=== PATIENT | male | born 1945 | race Caucasian/White ===

== ENCOUNTER → 2020-07-02 10:37 | Outpatient (BNVA) | payer MEDICARE, SELFPAY | PROVIDERS: Family Provider Nurse Practitioner Family; PCP Nurse Practitioner Family; Visit Provider Registered Nurse | DX: Z20.828 Contact with and (suspected) exposure to other viral communicable diseases (principal) | CPT/HCPCS: 87635 ==

== ENCOUNTER 2020-11-03 18:41 | Inpatient (IN) | payer MEDICARE, SELFPAY ==
[2020-11-03] VITALS (9 sets, daily range): BP systolic 102–172; BP diastolic 67–123; PULSE 111–142; RESP 17–20; O2SAT 95–98; BMI 29.9
--- NOTE | 2020-11-03 19:01 | ED_ITS ---
HPI - SOB/Dyspnea General: Chief Complaint: Shortness of Breath/Dyspnea Stated Complaint: DIFF BREATHING Time Seen by Provider: 11/03/20 18:47 History of Present Illness: HPI Narrative: 75-year-old male brought in by EMS secondary to shortness of breath. EMS states that his O2 sat was 81% on room air. They state he was diaphoretic and pale. Patient states he has been having difficulty breathing past 3 to 4 days. He states he got worse today. He does not wear oxygen at home. He is currently on O2 per nasal cannula. He denies any chest pain. No arm, neck or jaw pain. He denies fever or chills. No nausea or vomiting. No pain or burning with urination. No diarrhea or constipation. No abdominal or flank pain. He states it is hard to take a deep breath but denies any pain on inspiration. He states he has not had a cough. He states it is just hard to breathe. Patient states that he does have inhaler at home but states he has not used it for the past 1-1/2 weeks. He denies a history of any previous heart attack/CA. He states he did have a CVA in 2012. He denies any lung disease. Records do indicate he has had previous bouts of bronchitis. On route patient did receive steroids as well as breathing treatments. He states he feels a lot better now than he did. MD elicited complaint: shortness of breath Onset (ago): day(s) (3-4 days, worse today) Associated symptoms: Reports diaphoresis (Patient was noted to be diaphoretic upon the EMS arrival); Deny abdominal pain, chest congestion, chest pain, dizziness, extremity pain, fever(s), hemoptysis, lightheadedness, nausea, palpitations, syncope or vomiting Review of Systems General: Reports: 10 or more systems reviewed and unremarkable except in HPI and below Narrative: 75-year-old male comes in with shortness of breath the past 3-4 days. Worse today. He denies any history of lung disease. He denies any previous heart disease or CA. He has had a previous stroke. Const: Reports: diaphoresis (Patient was noted to be diaphoretic upon the EMS arrival); Denies: fever(s), chills, body aches, change in appetite, change in weight, fatigue, malaise or night sweats ENMT: Denies: throat pain, ear or mastoid pain or nasal congestion Card: Denies: chest pain, palpitations, irregular heart rhythm, edema, swelling of feet/ankles, lightheadedness, syncope or leg pain with exertion Resp: Reports: dyspnea (Current chief complaint of shortness of breath); Denies: productive cough, non-productive cough, wheezing, stridor, pain on inspiration, change in phlegm color, hemoptysis or chest congestion GI: Denies: abdominal pain, nausea, vomiting, heartburn, diarrhea or constipation : Denies: flank pain, difficulty urinating or dysuria Musc: Denies: neck pain, back pain, extremity pain or extremity swelling Neuro: Denies: headache(s), numbness in extremities, weakness in extremities, lack of coordination, dizziness or confusion Psych: Denies: anxiety or depression PFS ED PFSH: Medical History Anemia Cerebellar stroke Clavicle fracture Dyslipidemia HTN (hypertension) Surgical History H/O tooth extraction Family History (Updated 11/04/20 @ 00:46 by Adore Munoz MD) Other Cancer Social History (Updated 11/04/20 @ 00:46 by Adore Munoz MD) Smoking and tobacco status: never smoked Second hand smoke exposure: No Alcohol intake: never Substance/Drug Use: never Housing: House Physical Exam Narrative: EXAM NARRATIVE: 75-year-old male comes in with shortness of breath. He appears to be in no acute distress. The patient is wearing O2 per nasal cannula. Const: COMMON NORMALS: no acute distress, average body habitus, patient oriented x3, no limitations, healthy appearing, alert and well nourished GE NERAL APPEARANCE: cooperative, comfortable and well developed; not in distress, not anxious and not lethargic NUTRITIONAL APPEARANCE: not cachectic ORIENTATION/CONSCIOUSNESS: Yes oriented to person, Yes oriented to place and Yes oriented to time; not lethargic HENMT: MOUTH: Normal oral and palatal mucosa present THROAT: posterior oropharynx normal Eye: COMMON NORMALS: Equal, round and reactive pupils present, EOMs intact bilaterally, conjunctivae normal and no scleral icterus GENERAL EYE: appearance normal, both eyes and all related structures and normal light reflex CONJUNCTIVA: Yes conjunctivae normal PUPIL: Yes Equal, round and reactive pupils present DIRECT OPHTHALMOSCOPY: Yes normal light reflex Neck/C-Spine: COMMON NORMALS: full ROM, no lymphadenopathy, supple, no meningeal signs, no JVD and Thyroid normal GENERAL: Yes normal visual inspection, Yes trachea midline, No anterior neck swelling, No lymphadenopathy and No tender THYROID: Thyroid normal Chest: COMMONS NORMALS: normal inspection of the chest Resp: COMMON NORMALS: normal respiratory effort, No retractions and No use of accessory muscles EFFORT & INSPECTION: Yes able to speak in complete sentences, Yes symmetric chest movement, Yes abnormal respiratory pattern, No tachypneic, No respiratory distress, No decreased respiratory effort, No labored, No grunting, No stridor, No Actively coughing, No retractions, No uses accessory muscles and No audible wheezes AUSCULTATION: no crackles, no rales, no rhonchi, no wheezes and diminished lung sounds (Mildly decreased breath sounds at the bases) bilateral Cardio: COMMON NORMALS: no JVD, regular rhythm, No gallops present (Cardio), No clicks present (Cardio), No murmurs present (Cardio), No rub (Cardio) and Peripheral pulses 2+ throughout RATE: tachycardic RHYTHM: regular rhythm PERIPHERAL PULSES: Peripheral pulses 2+ throughout GI: COMMON NORMALS: Normal to inspection, nondistended, normoactive bowel sounds present, Soft to palpation, non-tender, No hepatosplenomegaly present, no masses and no bruits INSPECTION: Yes normal to inspection PALPATION: Yes Soft to palpation and Yes No hepatosplenomegaly present : COMMON NORMALS: Yes no CVA tenderness BLADDER/KIDNEY EXAM: Yes no CVA tenderness Back/Pelvis: COMMON NORMALS: no CVA tenderness Extremity: COMMON NORMALS: normal to inspection, full ROM, capillary refill normal, no joint enlargement, no clubbing, cyanosis or edema, no calf tenderness and no pedal edema Neuro: COMMON NORMALS: patient oriented x3, CN's II-XII intact bilaterally, moves all extremities, no focal motor deficits, deep tendon reflexes 2+ bilaterally and gait normal SENSORIUM/ORIENTATION: Yes alert, Yes oriented to person, Yes oriented to place, Yes oriented to time and No lethargic MENIN GEAL SIGNS: Yes no meningeal signs Psych: COMMON NORMALS: mental status grossly normal, Normal thought process present, cooperative, normal affect and speech normal ATTITUDE: Yes calm and Yes engaged SPEECH: Yes normal speech THOUGHT PROCESS: Normal thought process present Skin: COMMON NORMALS: no rashes or lesions noted, no wounds, turgor normal and no jaundice GENERAL SKIN EXAM: no rashes or lesions noted and turgor normal Course Reevaluation(s): Reevaluation #1: Patient noted to be extremely tachycardic. Heart rate greater than 200. Patient appears somewhat diaphoretic. Upon entering the room the patient stated that he did feel his heart beat faster earlier today as well. He also states his heart has beating fast the past 3- days on occasion. He states he would feel short of breath at those times. He denies any chest pain. No arm, neck or jaw pain at this time. Patient was given 25 mg of Cardizem which improved his heart rate. Vital Signs: Vital signs: Vital Signs Pulse Rate 71 11/04/20 06:30 Respiratory Rate 17 11/04/20 06:30 Blood Pressure 132/73 11/04/20 06:30 Pulse Oximetry 97 11/04/20 06:30 MDM - SOB/Dyspnea Lab Data: Labs: Lab Results 11/03/20 11/03/20 11/03/20 Range/Units 04:20 19:02 19:02 WBC 22.7 H (4.0-10.0) 10^3/ uL RBC 4.19 (4.1-5.3) 10^6/u L Hgb 12.5 (11.7-16.6) g/dL Hct 39.0 L (42.0-52.0) % MCV 93.1 (80-94) fL MCH 29.8 (28.0-34.0) pg MCHC 32.1 (30.0-36.0) g/dL RDW 13.5 (12.1-15.1) % Plt Count 291 (130-400) 10^3/c mm MPV 10.4 (7.4-10.4) fL Neut % (Auto) 52.3 % Lymph % (Auto) 33.0 % Clinton % (Auto) 9.9 % Eos % (Auto) 2.9 % Baso % (Auto) 0.4 % Neut # (Auto) 11.86 H (1.8-7.7) 10^3/u L Lymph # (Auto) 7.5 H (0.8-4.8) 10^3/u L Clinton # (Auto) 2.3 H (0.2-0.9) 10^3/u L Eos # (Auto) 0.7 (0.0-0.8) 10^3/u L Baso # (Auto) 0.1 (0.0-0.1) 10^3/u L Nucleated RBC % (a uto) 0 % Nucleated RBCs # 0.0 /100WBC D-Dimer 1.65 H (0-0.59) ug/mIFE U Specimen Type Arterial Sample Site Radial, right ABG pH 7.47 H (7.35-7.45) ABG pCO2 28.5 L (35-45) mmHg ABG pO2 86.5 (80.0-100.0) mmH g ABG HCO3 20.9 L (22-26) mmol/L ABG Base Excess -1.7 (-2.0-2.0) mmol/ L Indra Test Pos Hematocrit 36.6 L (42-52) % O2 Delivery Device Nc O2 Liters/Min 2.0 % Technical Sales Engineer ID [email or web address] Sodium (136-145) mmol/L Potassium (3.5-5.1) mmol/L Chloride (98-107) mmol/L Carbon Dioxide (22-29) mmol/L Anion Gap (5-19) BUN (8-23) mg/dL Creatinine (0.7-1.2) mg/dL GFR Calculation Glucose (65-115) mg/dL Estimat Average Gl ucose Hemoglobin A1c (4.0-6.0) % Calculated Osmolal ity (285-295) mOsm/k g Calcium (8.5-10.5) mg/dL Magnesium (1.7-2.3) mg/dL Total Bilirubin (0.15-1.2) mg/dL AST (0-40) U/L ALT (0-41) U/L Alkaline Phosphata se (40-130) IU/L Troponin T Baselin e (0-15) ng/L Troponin T 120 Min erasmo (0-15) ng/L Delta Troponin T (0-10) ABS# NT-Pro-B Natriuret Pep (0-125) pg/mL Total Protein (6.6-8.7) g/dL Albumin (3.5-5.2) g/dL Globulin (1.3-4.6) g/dL Serum Ketones (Negative) Influenza Type A A g (Negative) Influenza Type B A g (Negative) 11/03/20 11/03/20 11/03/20 Range/Units 19:02 19:02 19:02 WBC (4.0-10.0) 10^3/ uL RBC (4.1-5.3) 10^6/u L Hgb (11.7-16.6) g/dL Hct (42.0-52.0) % MCV (80-94) fL MCH (28.0-34.0) pg MCHC (30.0-36.0) g/dL RDW (12.1-15.1) % Plt Count (130-400) 10^3/c mm MPV (7.4-10.4) fL Neut % (Auto) % Lymph % (Auto) % Clinton % (Auto) % Eos % (Auto) % Baso % (Auto) % Neut # (Auto) (1.8-7.7) 10^3/u L Lymph # (Auto) (0.8-4.8) 10^3/u L Clinton # (Auto) (0.2-0.9) 10^3/u L Eos # (Auto) (0.0-0.8) 10^3/u L Baso # (Auto) (0.0-0.1) 10^3/u L Nucleated RBC % (a uto) % Nucleated RBCs # /100WBC D-Dimer (0-0.59) ug/mIFE U Specimen Type Sample Site ABG pH (7.35-7.45) ABG pCO2 (35-45) mmHg ABG pO2 (80.0-100.0) mmH g ABG HCO3 (22-26) mmol/L ABG Base Excess (-2.0-2.0) mmol/ L Indra Test Hematocrit (42-52) % O2 Delivery Device O2 Liters/Min % Technical Sales Engineer ID Sodium 131 L (136-145) mmol/L Potassium 3.2 L (3.5-5.1) mmol/L Chloride 92 L (98-107) mmol/L Carbon Dioxide 15 L (22-29) mmol/L Anion Gap 27.2 H (5-19) BUN 11 (8-23) mg/dL Creatinine 1.1 (0.7-1.2) mg/dL GFR Calculation Not Reportable Glucose 269 H (65-115) mg/dL Estimat Average Gl ucose 131 Hemoglobin A1c 6.2 H (4.0-6.0) % Calculated Osmolal ity 281 L (285-295) mOsm/k g Calcium 8.3 L (8.5-10.5) mg/dL Magnesium 2.2 (1.7-2.3) mg/dL Total Bilirubin 0.9 (0.15-1.2) mg/dL AST 38 (0-40) U/L ALT 40 (0-41) U/L Alkaline Phosphata se 88 (40-130) IU/L Troponin T Baselin e 112 H* (0-15) ng/L Troponin T 120 Min erasmo (0-15) ng/L Delta Troponin T (0-10) ABS# NT-Pro-B Natriuret Pep 29014 H (0-125) pg/mL Total Protein 6.2 L (6.6-8.7) g/dL Albumin 3.7 (3.5-5.2) g/dL Globulin 2.5 (1.3-4.6) g/dL Serum Ketones (Negative) Influenza Type A A g (Negative) Influenza Type B A g (Negative) 11/03/20 11/03/20 11/03/20 Range/Units 19:02 19:25 20:55 WBC (4.0-10.0) 10^3/ uL RBC (4.1-5.3) 10^6/u L Hgb (11.7-16.6) g/dL Hct (42.0-52.0) % MCV (80-94) fL MCH (28.0-34.0) pg MCHC (30.0-36.0) g/dL RDW (12.1-15.1) % Plt Count (130-400) 10^3/c mm MPV (7.4-10.4) fL Neut % (Auto) % Lymph % (Auto) % Clinton % (Auto) % Eos % (Auto) % Baso % (Auto) % Neut # (Auto) (1.8-7.7) 10^3/u L Lymph # (Auto) (0.8-4.8) 10^3/u L Clinton # (Auto) (0.2-0.9) 10^3/u L Eos # (Auto) (0.0-0.8) 10^3/u L Baso # (Auto) (0.0-0.1) 10^3/u L Nucleated RBC % (a uto) % Nucleated RBCs # /100WBC D-Dimer (0-0.59) ug/mIFE U Specimen Type Sample Site ABG pH (7.35-7.45) ABG pCO2 (35-45) mmHg ABG pO2 (80.0-100.0) mmH g ABG HCO3 (22-26) mmol/L ABG Base Excess (-2.0-2.0) mmol/ L Indra Test Hematocrit (42-52) % O2 Delivery Device O2 Liters/Min % Technical Sales Engineer ID Sodium (136-145) mmol/L Potassium (3.5-5.1) mmol/L Chloride (98-107) mmol/L Carbon Dioxide (22-29) mmol/L Anion Gap (5-19) BUN (8-23) mg/dL Creatinine (0.7-1.2) mg/dL GFR Calculation Glucose (65-115) mg/dL Estimat Average Gl ucose Hemoglobin A1c (4.0-6.0) % Calculated Osmolal ity (285-295) mOsm/k g Calcium (8.5-10.5) mg/dL Magnesium (1.7-2.3) mg/dL Total Bilirubin (0.15-1.2) mg/dL AST (0-40) U/L ALT (0-41) U/L Alkaline Phosphata se (40-130) IU/L Troponin T Baselin e (0-15) ng/L Troponin T 120 Min erasmo 144.9 H (0-15) ng/L Delta Troponin T 32.9 H* (0-10) ABS# NT-Pro-B Natriuret Pep (0-125) pg/mL Total Protein (6.6-8.7) g/dL Albumin (3.5-5.2) g/dL Globulin (1.3-4.6) g/dL Serum Ketones Negative (Negative) Influenza Type A A g Negative (Negative) Influenza Type B A g Negative (Negative) Discharge Plan Discharge Patient Disposition: Admitted As Inpatient Admit Provider: Adore Munoz Coding Level of Care Code ED [facility] Director for [facility] Fwd Exam Comprehensive
--- NOTE | 2020-11-03 19:01 | XRR_ITS ---
PROCEDURE INFORMATION: Exam: XR Chest Exam date and time: 11/03/2020 7:21 PM Age: 75 years old Clinical indication: Shortness of breath; Additional info: SOB TECHNIQUE: Imaging protocol: XR of the chest. Views: 1 view. COMPARISON: CR Chest 1 [place] [id number] 01/11/2016 3:53 PM FINDINGS: Lungs: Decreased lung volumes. Background emphysema. There is possible posterior left lower lobe pulmonary opacification. Pleural spaces: Unremarkable. No pleural effusion. No pneumothorax. Heart/Mediastinum: Unremarkable. No cardiomegaly. Vasculature: Moderate atherosclerosis. Bones/joints: Bones are demineralized. XR/XR chest 1V portable [id number] IMPRESSION: Left lower lobe pneumonia suspected. PA and lateral radiography would provide greater specificity.
--- NOTE | 2020-11-03 19:02 | ECG_ITS ---
[facility] Test Date: 2020-11-03 Pat Name: Alexander Villalba Department: Room: Gender: Male Combat Engineer: : 1945 Requested By: Dudley Pennington Order Number: [id number] Anamaria MD: Angelo Hahn M.D. Measurements Intervals [place] Rate: 118 P: 47 IN: 151 QRS: -7 QRSD: 126 T: 85 QT: 363 QTc: 510 Interpretive Statements SINUS TACHYCARDIA Compared to ECG 01/11/2016 16:26:11 Sinus rhythm no longer present First degree AV block no longer present Left ventricular hypertrophy no longer present Myocardial infarct finding still present Electronically Signed On 11-05-2020 8:00:42 CDT by Angelo Hahn M.D. [email or web address] medical [email or web address] [email or web address].[employer]UR[employer]/store/NU/[id number] f
[2020-11-03 19:09] LABS: Basophils # 0.1 10^3/uL (0.0-0.1); Basophils % 0.4 %; Eosinophils # 0.7 10^3/uL (0.0-0.8); Eosinophils % 2.9 %; Hemoglobin 12.5 g/dL (11.7-16.6); Lymphocytes # 7.5 10^3/uL (0.8-4.8); Mean Corpuscular HGB Conc 32.1 g/dL (30.0-36.0); Mean Corpuscular Hemoglobin 29.8 pg (28.0-34.0); Mean Corpuscular Volume 93.1 fL (80-94); Mean Platelet Volume 10.4 fL (7.4-10.4); Monocytes # 2.3 10^3/uL (0.2-0.9); Monocytes % 9.9 %; Neutrophils # 11.86 10^3/uL (1.8-7.7); Neutrophils % 52.3 %; Nucleated Red Blood Cells % 0 %; Platelet Count 291 10^3/cmm (130-400); Red Blood Count 4.19 10^6/uL (4.1-5.3); Red Cell Distribution Width 13.5 % (12.1-15.1); White Blood Count 22.7 10^3/uL (4.0-10.0)
[2020-11-03 19:22] LABS: D Dimer 1.65 ug/mIFEU (0-0.59)
[2020-11-03 19:34] LABS: Alanine Aminotransferase 40 U/L (0-41); Albumin Level 3.7 g/dL (3.5-5.2); Alkaline Phosphatase 88 IU/L (40-130); Anion Gap 27.2 (5-19); Aspartate Amino Transferase 38 U/L (0-40); Blood Urea Nitrogen 11 mg/dL (8-23); Calcium 8.3 mg/dL (8.5-10.5); Carbon Dioxide 15 mmol/L (22-29); Chloride 92 mmol/L (98-107); Globulin 2.5 g/dL (1.3-4.6); Glucose 269 mg/dL (65-115); Magnesium 2.2 mg/dL (1.7-2.3); Osmolality Calculated 281 mOsm/kg (285-295); Potassium 3.2 mmol/L (3.5-5.1); Sodium 131 mmol/L (136-145); Total Bilirubin 0.9 mg/dL (0.15-1.2); Total Protein 6.2 g/dL (6.6-8.7); Troponin(5th) Baseline 112 ng/L (0-15)
--- NOTE | 2020-11-03 19:47 | CTR_ITS ---
PROCEDURE INFORMATION: Exam: CTA Chest With Contrast Exam date and time: 11/03/2020 8:19 PM Age: 75 years old Clinical indication: Shortness of breath; Prior surgery; Surgery type: Clavicle; Additional info: SOB, tachycardia TECHNIQUE: Imaging protocol: Computed tomographic angiography of the chest with contrast. 3D rendering (Not supervised by radiologist): MIP and/or 3D reconstructed images were created by the technologist. Radiation optimization: All CT scans at this facility use at least one of these dose optimization techniques: automated exposure control; mA and/or kV adjustment per patient size (includes targeted exams where dose is matched to clinical indication); or iterative reconstruction. Contrast material: OMNI 350; Contrast volume: 95 ml; Contrast route: INTRAVENOUS (IV); COMPARISON: CR XR chest 1V portable [id number] 11/03/2020 7:11 PM RADIATION DOSE METRICS: Total DLP (mGy-cm): 594.54 FINDINGS: Pulmonary arteries: Normal. No pulmonary emboli. Aorta: Unremarkable. No aortic aneurysm. No aortic dissection. Lungs: Compressive atelectasis bilateral lower lobes. Mild mosaic attenuation changes of lung parenchyma. Moderately advanced emphysema. Mild diffuse septal thickening. No peripheral honeycombing. No focal obstructing endobronchial lesion. No focal acute pulmonary consolidation. Pleural spaces: Moderate volume left pleural effusion. Small to moderate volume right pleural effusion. Heart: Unremarkable. No cardiomegaly. No pericardial effusion. Lymph nodes: Unremarkable. No enlarged lymph nodes. Bones/joints: The thoracic spine demonstrates moderate degenerative changes at multiple levels. Thoracic spinal alignment is normal. Mild multilevel anterior vertebral body wedging throughout the midthoracic spine. No focal suspicious bone lesion. Soft tissues: Unremarkable. CT/CT angio chest PE protcl [id number] IMPRESSION: 1. Negative for pulmonary embolism. 2. 3rd spacing of fluid with bilateral pleural effusions and possibly mild diffuse interstitial edema. 3. Background emphysema. Radiation Dose CTDIVOL = (mGy): DLP = 594.54 (mGy-cm)
[2020-11-03 20:03] LABS: Influenza A by IFA Negative (Negative); Influenza B by IFA Negative (Negative)
[2020-11-03] MEDS: aspirin 81 mg Chew Tablet 324 MG PO (20:47)
[2020-11-03] MEDS: iohexol 350 mg/mL 100 mL Btl IV (20:48)
--- NOTE | 2020-11-03 21:02 | ECG_ITS ---
[facility] Test Date: 2020-11-03 Pat Name: Alexander Villalba Department: Room: Gender: Male Supervisor Finishing: : 1945 Requested By: Dudley Pennington Order Number: [id number] Anamaria MD: Angelo Hahn M.D. Measurements Intervals [place] Rate: 124 P: NM: QRS: -16 QRSD: 100 T: 93 QT: 363 QTc: 523 Interpretive Statements ATRIAL FIBRILLATION WITH RAPID VENTRICULAR RESPONSE MODERATE VOLTAGE CRITERIA FOR LVH, CONSIDER NORMAL VARIANT [MEETS CRITERIA IN ONE OF: R(aVL), S(V1), R(V5), R(V5/V6)+S(V1)] POSSIBLE ANTERIOR MYOCARDIAL INFARCTION [30 ms Q WAVE IN V3/V4, OR R < 0.2 mV IN V4], PROBABLY OLD ABNORMAL RHYTHM ECG Compared to ECG 11/03/2020 18:52:37 Sinus tachycardia no longer present Myocardial infarct finding still present Electronically Signed On 11-05-2020 8:07:33 CDT by Angelo Hahn M.D. [email or web address] [email or web address] [facility].[employer]/store/OM/[id number]/ecg/[id number]
[2020-11-03 21:28] LABS: Troponin 5 2HR 144.9 ng/L (0-15); Troponin 5 2HR Delta 32.9 ABS# (0-10)
--- NOTE | 2020-11-03 22:10 | P.HP_ITS ---
Providers/Chief Complaint Primary Care Provider: Jh Ramirez Chief Complaint: DIFF BREATHING History of Present Illness Alexander Villalba is a 75 year old male who has previous history of diabetes and hypertension cerebellar stroke presented today with chief complaint of shortness of breath. Patient is stating that his symptoms started 3 to 4 days ago which he is describing as short interval of acute shortness of breath with spontaneous resolution within seconds, he did not experience any fever, chest pain, productive cough, abdominal pain, diarrhea or dysuria. He is denying palpitations no previous history of A. fib or tachyarrhythmia. Denying previous history of CHF, OR. He presented today after worsening of his symptoms Diagnostics in the ER revealed new onset CHF secondary to tachyarrhythmia, new onset A. fib RVR currently on Cardizem drip at 15 mg/h, hyperglycemia no signs of DKA high anion gap lactic acid is pending hypokalemia magnesium 2.2, NSTEMI, Dr. Hahn consulted and notified Review of Systems Const: Reports: body aches and fatigue; Denies: fever(s) Eyes: Denies: change in vision ENMT: Denies: throat pain Card: Reports: dyspnea on exertion; Denies: chest pain or orthopnea Resp: Reports: dyspnea and non-productive cough GI: Denies: abdominal pain : Denies: flank pain Musc: Denies: neck pain Skin/Breast: Denies: rash Neuro: Denies: headache(s) Psych: Denies: anxiety Endo: Denies: polyuria Raul/Lymph: Denies: easy bruising All/Imm: Denies: urticaria Medications/Allergies Home Medications Medication Instructions Recorded Confirmed Last Taken Type lisinopril 20 1 tab PO DAILY@08 09/17/19 11/03/20 11/03/20 History mg-hydrochlorothiazide 25 mg tablet metformin 1,000 mg tablet 500 mg PO BID@,18 tab 09/17/19 11/03/20 11/03/20 08:00 History Fish Oil 1 cap PO PRN 11/03/20 11/03/20 Unknown History Paxil 40 mg PO DAILY@18 11/03/20 11/03/20 11/02/20 History albuterol sulfate [ProAir HFA] 2 puff INHALATION Q4H PRN 11/03/20 11/03/20 Unknown History aspirin 325 mg PO BEDTIME 11/03/20 11/03/20 11/02/20 History calcium 1 tab PO PRN 11/03/20 11/03/20 Unknown History metoprolol tartrate 50 mg PO BID@08,18 11/03/20 11/03/20 11/03/20 08:00 History pravastatin 10 mg PO BEDTIME 11/03/20 11/03/20 11/01/20 History Allergies Allergy/AdvReac Type Severity Reaction Status Date / Time No Known Allergies Allergy Verified 11/03/20 20:08 PFSH Acute PFSH: Medical History Anemia Cerebellar stroke Clavicle fracture Dyslipidemia HTN (hypertension) Surgical History H/O tooth extraction Family History (Updated 11/04/20 @ 00:46 by Adore Munoz MD) Other Cancer Social History (Updated 11/04/20 @ 00:46 by Adore Munoz MD) Smoking and tobacco status: never smoked Second hand smoke exposure: No Alcohol intake: never Substance/Drug Use: never Housing: House Vitals/I&O/Wt Last Vital Signs Pulse 133 H 11/03/20 22:07 Resp 17 11/03/20 22:07 BP 102/67 11/03/20 22:07 Pulse Ox 98 11/03/20 22:07 11/03/20 11/03/20 11/03/20 06:59 14:59 22:59 Intake Total 5.584 / 5.584 Balance 5.584 / 5.584 Weight last 48 hrs Weight 81.647 kg Physical Exam Narrative: EXAM NARRATIVE: Patient was laying supine without any active discomfort chest pain shortness of breath or fever Cardizem drip running at 50 mg/h Heart rate 110, blood pressure normal systolic 110 mmHg S1, S2 variable, no active signs of CHF exacerbation Does not look fluid overloaded Abdomen soft nontender Lower extremity no edema gangrene ulcer Bilateral breath sounds without adventitious audible rhonchi or crackles Appropriate mood and affect GCS 15 awake alert oriented x3 No skin changes of ischemia gangrene or ulcer No joint swelling Data : 11/03/20 19:02 11/03/20 19:02 A&P Assessment and plan (1) New onset of congestive heart failure: Status: Acute (2) NSTEMI (non-ST elevated myocardial infarction): Status: Acute (3) Atrial fibrillation with RVR: Status: Acute Additional A&P Information NSTEMI No active chest pain EKG without ischemic or infarctive changes, troponin above 100, PE ruled out, started ACS protocol, no previous history of OR or CHF, would keep tachyarrhythmia induced troponin leak in my differential as well for type II OR, I do not suspect any urgent cardiac intervention we will keep him on cardiac diet, Dr. Holliday consulted and notified A. fib acute onset with RVR Magnesium normal, hypokalemia noted which is repleted, TSH [id number], currently on therapeutic dose of Lovenox Will follow up with echo in the morning, PE ruled out no active signs of sepsis no consolidation on CT chest which was being considered on chest x-ray High BNP however clinically does not look fluid overloaded, at home he takes lisinopril along hydrochlorothiazide which I would resume for now would not add Lasix for now Poorly controlled type 2 diabetes Hyperglycemia with high anion gap no signs of DKA Bicarb is 15, lactic acid is pending no serum ketones, hemoglobin A1c 6.2 Potassium 3.2, current blood sugar 286 not a candidate of insulin I will keep him on moderate sliding scale and give him 250 mL bolus of normal saline I do not suspect Metformin toxicity at this point, kidney function is normal no active nausea vomiting or headache Will give 1 amp of bicarb after replenishing potassium for highAnion gap metabolic acidosis he takes aspirin 325mg, check salicylate level Full code Cardiac consistent carb diet DVT prophylaxis not indicated due to therapeutic use of Lovenox Attestations Medical Necessity Statement*: Anticipating stay in the hospital because more than 2 midnights for new onset A. fib RVR, NSTEMI, Time Spent in Patient Care: (>than 50% of time spent in counselling and/or direct pt care on unit) . 50mins Coding Level of Care Code Acute Senior Lead Software Engineer for Chg Fwd Diagnoses New onset of congestive heart failure I50.9 NSTEMI (non-ST elevated myocardial infarction) I21.4 Atrial fibrillation with RVR I48.91
--- NOTE | 2020-11-03 22:50 | PC.NURSE ---
Pt to room 108 via ED stretcher. Pt is alert and oriented x 4 and appears to be in no acute distress at this time. Pt placed on secured entrance monitor and vital signs obtained. Pt found to be in a-fib with RVR pt is a-febrile but is diaphoretic. Patient denies any pain. Dr. Munoz in to evaluate patient and patient states that he is diabetic. A fsbs was immediately obtained and found to be 283. Verbal order received for 10units novolin sub cutaneous. Dr. Munoz notified of the patient's elevated anion gap and lactic acide as well as serum ketones were ordered and sent to the lab. The patient was then transfered to room 111-2 to increase the ability to centrally monitor this patient as well as have him closer to the nurses station. Pt is currently on cardizem drip at 15mg/hr. Pt's only complaint is generalized weakness at this time.
[2020-11-03 23:26] LABS: Glucose Point of Care 286 mg/dL (70-110)
[2020-11-03 23:47] LABS: Ketone (Acetest) Serum Negative (Negative)
[2020-11-03] MEDS: sodium chloride 0.9% 250 ML IV (23:50)
[2020-11-03 23:56] LABS: Estmated Average Glucose 131; Hemoglobin A1C 6.2 % (4.0-6.0)
[2020-11-04] VITALS (50 sets, daily range): BP systolic 87–141; BP diastolic 51–97; PULSE 69–138; RESP 13–29; TEMP 36.6–36.7; O2SAT 93–100
[2020-11-04] MEDS: atorvastatin 40 mg Tablet 80 MG PO ×2 (00:10→21:00)
[2020-11-04] MEDS: enoxaparin 80 mg/0.8 mL Syringe SUBCUT ×3 (00:18→22:50)
--- NOTE | 2020-11-04 01:02 | ECG_ITS ---
[facility] Test Date: 2020-11-04 Pat Name: Alexander Villalba Department: Room: 108 Gender: Male Delivery Coordinator: : 1945 Requested By: Dudley Pennington Order Number: [id number] Anamaria MD: Angelo Hahn M.D. Measurements Intervals [place] Rate: 108 P: PA: QRS: -24 QRSD: 87 T: 67 QT: 344 QTc: 462 Interpretive Statements ATRIAL FIBRILLATION WITH RAPID VENTRICULAR RESPONSE BORDERLINE LEFT AXIS DEVIATION [QRS AXIS < -20] MODERATE VOLTAGE CRITERIA FOR LVH, CONSIDER NORMAL VARIANT [MEETS CRITERIA IN ONE OF: R(aVL), S(V1), R(V5), R(V5/V6)+S(V1)] NONSPECIFIC T-WAVE ABNORMALITY ABNORMAL RHYTHM ECG Compared to ECG 11/03/2020 21:38:38 T-wave abnormality now present Myocardial infarct finding no longer present Electronically Signed On 11-05-2020 10:03:34 CDT by Angelo Hahn M.D. [id number]
[2020-11-04] MEDS: sodium bicarbonate 8.4% 1 mEq/mL 50mL Syr 25 MEQ IVP (01:21)
[2020-11-04] MEDS: potassium chloride ER 20 mEq Tablet 40 MEQ PO (01:21)
[2020-11-04 01:37] LABS: Lactate (Lactic Acid level) 3.1 mmol/L (0.5-2.2); Salicylate 2.3 mg/dL (3-10)
[2020-11-04 01:39] LABS: Troponin 5 6HR 93.58 ng/L (0-15)
--- NOTE | 2020-11-04 04:24 | PC.NURSE ---
Pt just converted from A-fib with RVR to NSR rate of 80. Cardizem titrated down to 10mg/hr. Dr. Munoz notified.
[2020-11-04 04:35] LABS: ABG PCO2 28.5 mmHg (35-45); ABG PH Result 7.47 (7.35-7.45); Arterial Blood Gas Hematocrit 36.6 % (42-52); Base Excess ABG -1.7 mmol/L (-2.0-2.0); Blood Gas Allen Test Pos; Blood Gas Sample Site Radial, right; Blood Gas Sample Type Arterial; HCO3 ABG 20.9 mmol/L (22-26); Oxygen Device NC; PO2 ABG 86.5 mmHg (80.0-100.0)
[2020-11-04 04:58] LABS: Urine Appearance Clear (CLEAR); Urine Color Yellow (Yellow); pH Urine 5 (5-7)
[2020-11-04 04:59] LABS: Add Urine Microscopic? YES; Bilirubin Urine Neg (Negative); Blood Urine 2+ (Negative); Glucose Urine UA 2+ (Normal); Ketones Urine 1+ (Negative); Leukocyte Esterase Urine Negative (Negative); Nitrate Urine Negative (Negative); Protein Urine 1+ (Negative); Urobilinogen Urine Norm (Negative)
[2020-11-04 05:00] LABS: Add Urine Culture? No; Bacteria Urine 1+ /hpf; WBC Urine 0-4 /hpf (0-5)
[2020-11-04] MEDS: calcium gluconate 0.1 gm/mL 10% SDV 10mL 1 GM IVP (05:00)
[2020-11-04 05:06] LABS: Anion Gap 16.4 (5-19); Blood Urea Nitrogen 14 mg/dL (8-23); Calcium 7.8 mg/dL (8.5-10.5); Carbon Dioxide 20 mmol/L (22-29); Chloride 99 mmol/L (98-107); Creatinine Clr Calc Pharmacy 70.8469; Glucose 192 mg/dL (65-115); Osmolality Calculated 280 mOsm/kg (285-295); Potassium 3.4 mmol/L (3.5-5.1); Sodium 132 mmol/L (136-145)
[2020-11-04] MEDS: levoFLOXacin 750 mg Tablet PO (05:17)
[2020-11-04 06:13] LABS: Basophils % 0.1 %; Hematocrit 32.7 % (42.0-52.0); Hemoglobin 11.1 g/dL (11.7-16.6); Lymphocytes # 0.7 10^3/uL (0.8-4.8); Lymphocytes % 6.5 %; Mean Corpuscular HGB Conc 33.9 g/dL (30.0-36.0); Mean Corpuscular Hemoglobin 29.5 pg (28.0-34.0); Mean Platelet Volume 10.7 fL (7.4-10.4); Monocytes # 0.7 10^3/uL (0.2-0.9); Monocytes % 6.2 %; Neutrophils # 9.61 10^3/uL (1.8-7.7); Neutrophils % 86.7 %; Nucleated Red Blood Cells % 0 %; Platelet Count 225 10^3/cmm (130-400); Red Blood Count 3.76 10^6/uL (4.1-5.3); Red Cell Distribution Width 13.3 % (12.1-15.1); White Blood Count 11.1 10^3/uL (4.0-10.0)
[2020-11-04 06:41] LABS: Glucose Point of Care 195 mg/dL (70-110)
[2020-11-04 06:47] LABS: Thyroid Stimulating Hormone 6.15 uIU/mL (0.27-4.20)
[2020-11-04] MEDS: clopidogrel 75 mg Tablet PO (08:40)
[2020-11-04] MEDS: lisinopril 20 mg Tablet PO (08:40)
--- NOTE | 2020-11-04 09:35 | PM.CONSULT ---
Providers/Reason For Consult Consulting Physican/Specialty*: Angelo Hahn MD/ Cardiology Reason for Consult*: Atrial fibrillation with RVR/ Troponin elevation Requesting Physcian: Dr Dudley Pennington Attending Physician: Jesus Willis MD Primary Care Provider: Jh Ramirez History of Present Illness History of Present Illness Alexander Villalba is a 75 year old male with past medical history of hypertension and history of CVA presented to the hospital last evening with complaints of shortness of breath for 3 to 4 days and palpitations. Last night breathing difficulty got worse. EMS reported his O2 sat dropped down to 81 %. According to patient he does not have any history of atrial fibrillation. On arrival to the emergency room, patient was found to be in atrial fibrillation with RVR. He was started on Cardizem drip that converted him back to normal sinus rhythm. He was started on Lovenox for anticoagulation. His troponin level increased from 112 to 144 and then trended down. He denies any chest pain. Review of Systems Const: Reports: body aches and fatigue; Denies: fever(s) Eyes: Denies: change in vision ENMT: Denies: throat pain Card: Reports: dyspnea on exertion; Denies: chest pain or orthopnea Resp: Reports: dyspnea and non-productive cough GI: Denies: abdominal pain : Denies: flank pain Musc: Denies: neck pain Skin/Breast: Denies: rash Neuro: Denies: headache(s) Psych: Denies: anxiety Endo: Denies: polyuria Raul/Lymph: Denies: easy bruising All/Imm: Denies: urticaria Meds/Allergies Home Medications and Allergies Home Medications Medication Instructions Recorded Confirmed Last Taken Type lisinopril 20 1 tab PO DAILY@08 09/17/19 11/03/20 11/03/20 History mg-hydrochlorothiazide 25 mg tablet metformin 1,000 mg tablet 500 mg PO BID@,18 tab 09/17/19 11/03/20 11/03/20 08:00 History Fish Oil 1 cap PO PRN 11/03/20 11/03/20 Unknown History Paxil 40 mg PO DAILY@18 11/03/20 11/03/20 11/02/20 History albuterol sulfate [ProAir HFA] 2 puff INHALATION Q4H PRN 11/03/20 11/03/20 Unknown History aspirin 325 mg PO BEDTIME 11/03/20 11/03/20 11/02/20 History calcium 1 tab PO PRN 11/03/20 11/03/20 Unknown History metoprolol tartrate 50 mg PO BID@08,18 11/03/20 11/03/20 11/03/20 08:00 History pravastatin 10 mg PO BEDTIME 11/03/20 11/03/20 11/01/20 History Allergies Allergy/AdvReac Type Severity Reaction Status Date / Time No Known Allergies Allergy Verified 11/03/20 20:08 Current Medications Current Medications Generic Name Dose Route Start Last Admin Trade Name Freq PRN Reason Stop Dose Admin Clopidogrel Bisulfate 75 mg 11/04/20 09:00 11/04/20 08:40 Clopidogrel 75 Mg Tablet PO 75 mg DAILY ABY Administration Enoxaparin Sodium 80 mg 11/03/20 23:30 11/04/20 00:18 Enoxaparin 80 Mg/0.8 Ml Syringe SUBCUT 80 mg Q12H ABY Administration Diltiazem HCl 125 mg/ Sodium 125 mls @ 0 mls/hr 11/03/20 19:45 11/04/20 05:21 Chloride IV Infused .Q0M ABY Titration Protocol Per Protocol Insulin Aspart 0 unit 11/04/20 08:00 11/04/20 08:41 Insulin Aspart 100 Unit/1 Ml SUBCUT 6 unit WM&BEDTIME ABY Administration Protocol Levofloxacin 750 mg 11/04/20 06:00 11/04/20 05:17 Levofloxacin 750 Mg Tablet PO 750 mg DAILY@0600 ABY Administration Protocol Lisinopril 20 mg 11/04/20 08:00 11/04/20 08:40 Lisinopril 20 Mg Tablet PO 20 mg DAILY@08 ABY Administration PFSH Acute PFSH: Medical History Anemia Cerebellar stroke Clavicle fracture Dyslipidemia HTN (hypertension) Surgical History H/O tooth extraction Family History Other Cancer Social History Smoking and tobacco status: never smoked Second hand smoke exposure: No Alcohol intake: never Substance/Drug Use: never Housing: House Vitals/I&O/Wt Last Vital Signs Temp 98.0 F 11/04/20 07:35 Pulse 90 11/04/20 09:03 Resp 18 11/04/20 09:03 BP 130/68 11/04/20 07:35 Pulse Ox 97 11/04/20 09:03 11/03/20 11/04/20 11/04/20 22:59 06:59 14:59 Intake Total 5.584 / 5.584 409.416 / 415.000 120 / 120 Output Total 200 / 200 Balance 5.584 / 5.584 209.416 / 215.000 120 / 120 Weight last 48 hrs Weight 180 lb Physical Exam Narrative: EXAM NARRATIVE: GENERAL: Patient is alert, awake and oriented x3. [] NECK: No jugular vein distension. [] HEENT: No cyanosis. No icterus. No pallor. [] HEART: Regular S1 and S2. No murmur, rub or gallop. [] LUNGS: Clear to auscultate bilaterally. [] ABDOMEN: Soft, nontender and nondistended. Positive bowel sounds. No guarding, rebound or tenderness. [] CENTRAL NERVOUS SYSTEM: Grossly nonfocal. [] EXTREMITIES: Lower extremities with no edema bilaterally. Pulses palpable in the lower extremities, both dorsalis pedis and posterior tibial. [] Data Micro: Micro: Microbiology 11/04/20 04:37 Legionella Urinary Antigen - Final Urine,Clean Catch Bacterial Antigens - Final 11/04/20 04:08 Blood Culture - Pr eliminary Blood SPECIMEN [facility] [place] 11/04/20 04:00 Blood Culture - Pr eliminary Blood SPECIMEN [facility] [place] A&P Assessment and plan (1) Atrial fibrillation with RVR: Status: Acute (2) New onset of congestive heart failure: Status: Acute (3) Essential hypertension: Status: Acute (4) Troponin level elevated: Status: Acute Patient has new onset atrial fibrillation with RVR. He has history of CVA. His [id number] score is 4. He will need life long anticoagulation for stroke prevention. Continue Lovenox for now. Can switch to Eliquis if stress test is normal Patient has converted back to normal sinus rhythm. Stop Cardizem drip and continue Cardizem p.o. 60 mg every 6 hours. Patient's troponin elevation is likely secondary to type II [place] in the setting of tachycardia. However will rule out ischemia with a nuclear stress test. Can be performed tomorrow. He appears volume overloaded. Continue IV Lasix 40 mg twice daily. Thank you for involving us with the care of this patient. We will continue to follow. Please call with questions. Coding Level of Care Code Acute Assistant Fitness Manager for Tanisha Armendariz Diagnoses Atrial fibrillation with RVR I48.91 New onset of congestive heart failure I50.9 Essential hypertension I10 Troponin level elevated R77.8
--- NOTE | 2020-11-04 10:33 | PM.PN ---
Subjective Subjective: Interval history: H&P and overnight events appreciated. Examination lying comfortably in bed with nasal cannula outside of the nose. Saturating 95%. Denies any nausea, vomiting, headache. States he is feeling a lot better than as when he came in. Currently he is in sinus rhythm 84 bpm and the Cardizem drip was stopped early in the morning around 6 AM. He denies any chest pain, difficulty in breathing at present. Vitals/I&O/Wt Last Vital Signs Temp 98.0 F 11/04/20 07:35 Pulse 90 11/04/20 09:03 Resp 18 11/04/20 09:03 BP 130/68 11/04/20 07:35 Pulse Ox 97 11/04/20 09:03 11/03/20 11/04/20 11/04/20 22:59 06:59 14:59 Intake Total 5.584 / 5.584 409.416 / 415.000 120 / 120 Output Total 200 / 200 Balance 5.584 / 5.584 209.416 / 215.000 120 / 120 Weight last 48 hrs Weight 81.647 kg Physical Exam Narrative: EXAM NARRATIVE: General: No acute distress, AO x3, outside notes HEENT: PERRLA, pupils bilaterally equal and reactive Chest: Normal vesicular breath sounds, bilateral fine crackles, equal good air entry bilaterally CVS: S1-S2 regular, no murmurs, no tachycardia, no gallops, no rubs Abdomen: Soft, nontender, no organomegaly, bowel sounds present Neuro: No focal deficits, no facial deformity, AO x3, power 5/5 in all limbs Data : 11/04/20 04:00 11/04/20 04:00 Micro: Microbiology 11/04/20 04:37 Legionella Urinary Antigen - Final Urine,Clean Catch Bacterial Antigens - Final 11/04/20 04:08 Blood Culture - Preliminary Blood SPECIMEN COLLECTED 11/04/20 04:00 Blood Culture - Preliminary Blood SPECIMEN COLLECTED A&P Assessment and plan (1) New onset of congestive heart failure: Status: Acute (2) Atrial fibrillation with RVR: Status: Acute (3) NSTEMI (non-ST elevated myocardial infarction): Status: Acute Additional A&P Information A. fib acute onset with RVR converted to normal sinus rhythm following the morning. Cardizem drip stopped. Start patient on Cardizem 60 every 6 hours for now. Monitor blood pressures. Monitor for bradycardia. Monitor electrolytes. [id number] 4, currently on therapeutic dose of Lovenox Echocardiogram ordered results awaited. New onset congestive heart failure: Most likely secondary to A. fib with RVR: Echocardiogram awaited. Start patient on Lasix 40 mg IV every 12 hours for now. We will switch over to oral depending on oxygen supplementation. Monitor intake, output. Daily weights. Elevated troponin: Most likely type II [place]. NSTEMI unlikely for now. Case discussed with Dr. Holliday from cardiology. If patient remains euvolemic we will plan for stress test tomorrow morning. N.p.o. after midnight. Check HbA1c, lipid panel. Continue with aspirin, Plavix, statin for now. Patient already on full dose Lovenox for anticoagulation for A. fib with RVR. Continue the same. Appreciate cardiology recommendations. High anion gap metabolic acidosis: Overnight given bicarb. Anion gap closing. Most likely because of starvation ketosis. We will continue to monitor. She does not have any stigmata of metabolic acidosis for now. Continue other chronic medications for type 2 diabetes mellitus and hypertension . Full code Cardiac consistent carb diet DVT prophylaxis not indicated due to therapeutic use of Lovenox Attestations Medical Necessity Statement*: Requires further hospitalization for management of A. fib with RVR elevated troponin most likely NSTEMI versus type II [place] requiring further work-up Time Spent in Patient Care: Greater than 35 minutes (>than 50% of time spent in counselling and/or direct pt care on unit). Coding Level of Care Code Acute Experimental Mechanic Electrical for Tanisha Armendariz Diagnoses New onset of congestive heart failure I50.9 Atrial fibrillation with RVR I48.91 NSTEMI (non-ST elevated myocardial infarction) I21.4
[2020-11-04 11:04] LABS: Procalcitonin 2.24 ng/mL (0-0.5)
[2020-11-04] MEDS: dilTIAZem 60 mg Tablet PO ×3 (11:10→22:51)
[2020-11-04] MEDS: FUROsemide 10 mg/mL SDV 4mL 40 MG IVP ×2 (11:11→22:50)
[2020-11-04 11:15] LABS: Chol HDL Ratio 2.68 mg/dL (1.0-5.00); Cholesterol 83 mg/dL (0-200); HDL Cholesterol 31 mg/dL (60-100); Iron 29 ug/dL (59-158); LDL Cholesterol Calculated 35 mg/dL (50-129); Total Iron Binding Capacity 223 mcg/dl; Triglycerides 83 mg/dL (0-150); Unsaturated Iron Binding 194 ug/dL (112-347); VLDL Cholestrol Calculation 17 mg/dL (0-30)
[2020-11-04 11:52] LABS: Free T4 Free Thyroxine 1.69 ng/dL (0.82-1.77); T3 Free 2.7 PG/ML (2.0-4.4)
[2020-11-04 12:16] LABS: Glucose Point of Care 141 mg/dL (70-110)
--- NOTE | 2020-11-04 12:54 | ECG_ITS ---
[facility] Test Date: 2020-11-05 Pat Name: Alexander Villalba Department: Room: 111 Gender: Male Biomedical Repair Technician: : 1945 Requested By: Jesus Willis Order Number: [id number] Anamaria MD: JULIÁN ALANIZ Interpretive Statements NAME OF STUDY: LEXISCAN SESTAMIBI STRESS TEST INDICATION: E; Elevated Troponin, NOTE: Please note that this is the electrocardiogram portion of the Lexiscan/Sestamibi stress test. The perfusion scan will be documented separately. DATA: Baseline heart rate was 97] beats per minute. Baseline blood pressure was 144/91 millimeters of mercury. Target heart rate was 146. Maximum heart rate achieved was 139. which was 95 % of the predicted target heart rate. Maximum blood pressure was 149/91 millimeters of mercury. The reason for ending the test was completion of the protocol. The patient did not experience any symptoms. ELECTROCARDIOGRAM: BASELINE: Sinus rhythm. Normal axis. PACs, otherwise, no ST-T changes suggestive of ischemia noted. No arrhythmia noted. EXERCISE: After Lexiscan injection, no ST-T changes suggestive of ischemic noted. No arrhythmia noted. CONCLUSION: Please note due to baseline abnormality of the EKG specificity and sensitivity of the EKG portion of LexiScan MIBI stress test will be low 1. EKG not suggestive of ischemia 2. Lexiscan injection unremarkable. 3. Perfusion scan will be documented separately. Electronically Signed On 11-18-2020 19:29:04 CDT by JULIÁN ALANIZ [id number]
[2020-11-04 16:55] LABS: Glucose Point of Care 170 mg/dL (70-110)
[2020-11-04 20:41] LABS: Glucose Point of Care 184 mg/dL (70-110)
[2020-11-04] MEDS: aspirin 81 mg EC Tablet PO (21:16)
--- NOTE | 2020-11-04 23:12 | USCV_ITS ---
[place] Age: 75 Gender: M : 1945 Exam Date: 11/04/2020 14:15 Ordering Phys: Adore Munoz MD Technologist: Tomeka Reed Exam Location: [facility] [place] Indication: NSTEMI BP: 155 / 67 HR: 86 Rhythm: Sinus Technical Quality: Fair MEASUREMENTS (Male / Female) Normal Values 2D ECHO LV Diastolic Diameter PLAX 3.9 cm 4.2 - 5.9 / 3.9 - 5.3 cm LV Systolic Diameter PLAX 1.4 cm IVS Diastolic Thickness 1.0 cm 0.6 - 1.0 / 0.6 - 0.9 cm IVS Systolic Thickness 2.1 cm LVPW Diastolic Thickness 1.0 cm 0.6 - 1.0 / 0.6 - 0.9 cm LVPW Systolic Thickness 1.4 cm LVOT Diameter 2.0 cm LV Ejection Fraction 2D Teich 92.1 % LV Ejection Fraction MOD 2C 55.4 % LV Ejection Fraction 2C AL 54.6 % LA Diameter 2.6 cm LA Width 2.6 cm LA Height 4.2 cm RA Width 2.8 cm RA Height 3.8 cm Aorta at Sinotubular Diameter 2.1 cm M-MODE LV Diastolic Diameter MM 4.7 cm 4.2 - 5.9 / 3.9 - 5.3 cm LV Systolic Diameter MM 3.7 cm LV Ejection Fraction MM Teich 43.0 % IVS Diastolic Thickness MM 1.2 cm 0.6 - 1.0 / 0.6 - 0.9 cm IVS Systolic Thickness MM 1.2 cm LVPW Diastolic Thickness MM 1.1 cm 0.6 - 1.0 / 0.6 - 0.9 cm LVPW Systolic Thickness MM 1.8 cm Aortic Annulus Diameter 2.7 cm LA Ao Ratio MM 1.0 MV E Point Septal Separation 0.9 cm DOPPLER AV Peak Velocity 182.0 cm/s LVOT Peak Velocity 109.0 cm/s AV Area Cont Eq vti 1.9 cm squared AV Area Cont Eq pk 2.0 cm squared MV Peak Velocity 103.0 cm/s MV Area PHT 3.6 cm squared Mitral E to A Ratio 0.8 MV E' Velocity 42.0 cm/s Mitral E to MV E' Ratio 5.7 Mitral E to LV E' Lateral Ratio 5.5 Mitral E to LV E' Septal Ratio 5.9 TR Peak Velocity 103.0 cm/s TR Peak Gradient 4.2 mmHg Right Atrial Pressure 3.0 mmHg Pulmonary Artery Systolic Pressu 7.2 mmHg PV Peak Velocity 118.0 cm/s RV Acceleration Time 0.1 s RV Ejection Time 0.2 s RV AcT/ET 0.3 FINDINGS Left Ventricle Normal left ventricular size and systolic function, EF 60 %. Grade I/IV diastolic dysfunction (abnormal relaxation filling pattern), normal to mildly elevated filling pressures. Right Ventricle The right ventricle is normal in size and function. Right Atrium The right atrium is normal in size. Left Atrium The left atrium is normal in size. Mitral Valve No gross abnormalities noted Aortic Valve No gross abnormalities noted Tricuspid Valve No gross abnormalities noted Pulmonic Valve No gross abnormalities noted Pericardium Normal pericardium without effusion. Aorta Normal ascending aorta dimension. CONCLUSIONS Normal left ventricular size and systolic function, EF 60 %. Grade I/IV diastolic dysfunction (abnormal relaxation filling pattern), normal to mildly elevated filling pressures. Normal cardiac chamber sizes No significant stenotic or regurgitant lesions There is no pericardial effusion. There are no intracardiac masses. No previous study is available for comparison. Dr Zack Dodge MD [facility] (Electronically Signed) Final Date: 04 Nov 2020 20:02 S
[2020-11-05] VITALS (9 sets, daily range): BP systolic 138–148; BP diastolic 73–106; PULSE 85–108; RESP 16–21; TEMP 36.2–36.6; O2SAT 94–99
[2020-11-05 03:50] LABS: Basophils % 0.2 %; Eosinophils % 0.4 %; Hematocrit 32.3 % (42.0-52.0); Lymphocytes # 1.7 10^3/uL (0.8-4.8); Lymphocytes % 15.3 %; Mean Corpuscular HGB Conc 34.1 g/dL (30.0-36.0); Mean Corpuscular Hemoglobin 29.6 pg (28.0-34.0); Mean Corpuscular Volume 86.8 fL (80-94); Mean Platelet Volume 10.6 fL (7.4-10.4); Monocytes % 8.7 %; Neutrophils # 8.22 10^3/uL (1.8-7.7); Neutrophils % 74.9 %; Nucleated Red Blood Cells % 0 %; Platelet Count 259 10^3/cmm (130-400); Red Blood Count 3.72 10^6/uL (4.1-5.3); Red Cell Distribution Width 13.6 % (12.1-15.1)
[2020-11-05 04:19] LABS: Alanine Aminotransferase 31 U/L (0-41); Albumin Level 3.5 g/dL (3.5-5.2); Alkaline Phosphatase 74 IU/L (40-130); Aspartate Amino Transferase 27 U/L (0-40); Blood Urea Nitrogen 20 mg/dL (8-23); Calcium 8.2 mg/dL (8.5-10.5); Carbon Dioxide 25 mmol/L (22-29); Chloride 95 mmol/L (98-107); Creatinine Clr Calc Pharmacy 63.7622; Globulin 2.6 g/dL (1.3-4.6); Glucose 151 mg/dL (65-115); Osmolality Calculated 280 mOsm/kg (285-295); Sodium 132 mmol/L (136-145); Total Bilirubin 0.6 mg/dL (0.15-1.2); Total Protein 6.1 g/dL (6.6-8.7)
[2020-11-05 04:20] LABS: Estmated Average Glucose 128; Hemoglobin A1C 6.1 % (4.0-6.0)
[2020-11-05] MEDS: dilTIAZem 60 mg Tablet PO ×2 (05:56→10:43)
[2020-11-05 06:53] LABS: Glucose Point of Care 152 mg/dL (70-110)
--- NOTE | 2020-11-05 07:08 | PC.NURSE ---
Messaged Dr. Muonz regarding this patient's low potassium. No new orders received.
[2020-11-05] MEDS: regadenoson 0.4 Mg/5 ml Syringe IVP (08:45)
--- NOTE | 2020-11-05 09:39 | PM.PN ---
Subjective Subjective: Interval history: Patient is doing well. He denies any complaints of chest pain, shortness of breath or palpitations. Stress test is negative for ischemia. Vitals/I&O/Wt Last Vital Signs Temp 98 F 11/05/20 03:00 Pulse 101 H 11/05/20 08:54 Resp 16 11/05/20 03:00 BP 138/73 11/05/20 08:54 Pulse Ox 96 11/05/20 07:00 11/04/20 11/05/20 11/05/20 22:59 06:59 14:59 Output Total 900 / 1780 300 / 2080 Balance -900 / -1540 -300 / -1840 Weight last 48 hrs Weight 180 lb Physical Exam Narrative: EXAM NARRATIVE: GENERAL: Patient is alert, awake and oriented x3. [] NECK: No jugular vein distension. [] HEENT: No cyanosis. No icterus. No pallor. [] HEART: Regular S1 and S2. No murmur, rub or gallop. [] LUNGS: Clear to auscultate bilaterally. [] ABDOMEN: Soft, nontender and nondistended. Positive bowel sounds. No guarding, rebound or tenderness. [] CENTRAL NERVOUS SYSTEM: Grossly nonfocal. [] EXTREMITIES: Lower extremities with no edema bilaterally. Pulses palpable in the lower extremities, both dorsalis pedis and posterior tibial. [] Data : 11/05/20 03:08 11/05/20 03:08 Micro: Microbiology 11/04/20 04:08 Blood Culture - Preliminary Blood NEGATIVE TO DATE 11/04/20 04:00 Blood Culture - Preliminary Blood NEGATIVE TO DATE 11/04/20 04:37 Legionella Urinary Antigen - Final Urine,Clean Catch Bacterial Antigens - Final A&P Assessment and plan (1) Atrial fibrillation with RVR: Status: Acute (2) New onset of congestive heart failure: Status: Acute (3) Essential hypertension: Status: Acute (4) Troponin level elevated: Status: Acute Patient has new onset atrial fibrillation with RVR. He has history of CVA. His [id number] score is 4. He will need life long anticoagulation for stroke prevention. Can switch to Eliquis 5 mg twice daily. Cardizem 360 mg daily. Patient's troponin elevation is likely secondary to type II [place] in the setting of tachycardia. Stress test was negative for ischemia. Switch to p.o. Lasix. Thank you for involving us with the care of this patient. Patient is ready to be discharged from cardiology standpoint. He can follow-up with cardiology office. Please call with questions. Attestations Medical Necessity Statement*: Care expected to cross 2 midnights. Coding Level of Care Code Acute Typing Pool Supervisor for Bg Fwd Diagnoses Atrial fibrillation with RVR I48.91 New onset of congestive heart failure I50.9 Essential hypertension I10 Troponin level elevated R77.8
[2020-11-05] MEDS: enoxaparin 80 mg/0.8 mL Syringe SUBCUT (10:42)
[2020-11-05] MEDS: FUROsemide 10 mg/mL SDV 4mL 40 MG IVP (10:42)
[2020-11-05] MEDS: potassium chloride ER 20 mEq Tablet 120 MEQ PO (10:42)
[2020-11-05] MEDS: clopidogrel 75 mg Tablet PO (10:43)
[2020-11-05] MEDS: lisinopril 20 mg Tablet PO (10:43)
--- NOTE | 2020-11-05 11:04 | PM.PN ---
Subjective Subjective: Interval history: H&P and overnight events appreciated. Examination lying comfortably in bed with nasal cannula outside of the nose. Saturating 95%. Denies any nausea, vomiting, headache. States he is feeling a lot better than as when he came in. Currently he is in sinus rhythm 84 bpm and the Cardizem drip was stopped early in the morning around 6 AM. He denies any chest pain, difficulty in breathing at present. Vitals/I&O/Wt Last Vital Signs Temp 98 F 11/05/20 03:00 Pulse 101 H 11/05/20 08:54 Resp 16 11/05/20 03:00 BP 138/73 11/05/20 08:54 Pulse Ox 96 11/05/20 07:00 11/04/20 11/05/20 11/05/20 22:59 06:59 14:59 Output Total 900 / 1780 300 / 2080 Balance -900 / -1540 -300 / -1840 Weight last 48 hrs Weight 81.647 kg Physical Exam Narrative: EXAM NARRATIVE: General: No acute distress, AO x3, outside notes HEENT: PERRLA, pupils bilaterally equal and reactive Chest: Normal vesicular breath sounds, bilateral fine crackles, equal good air entry bilaterally CVS: S1-S2 regular, no murmurs, no tachycardia, no gallops, no rubs Abdomen: Soft, nontender, no organomegaly, bowel sounds present Neuro: No focal deficits, no facial deformity, AO x3, power 5/5 in all limbs Data : 11/05/20 03:08 11/05/20 03:08 Micro: Microbiology 11/04/20 04:08 Blood Culture - Preliminary Blood NEGATIVE TO DATE 11/04/20 04:00 Blood Culture - Preliminary Blood NEGATIVE TO DATE 11/04/20 04:37 Legionella Urinary Antigen - Final Urine,Clean Catch Bacterial Antigens - Final A&P Assessment and plan (1) New onset of congestive heart failure: Status: Acute (2) Atrial fibrillation with RVR: Status: Acute (3) NSTEMI (non-ST elevated myocardial infarction): Status: Acute Additional A&P Information A. fib acute onset with RVR converted to normal sinus rhythm following the morning. Cardizem drip stopped. Start patient on Cardizem 60 every 6 hours for now. Monitor blood pressures. Monitor for bradycardia. Monitor electrolytes. [id number] 4, currently on therapeutic dose of Lovenox Echocardiogram ordered results awaited. New onset congestive heart failure: Most likely secondary to A. fib with RVR: Echocardiogram awaited. Start patient on Lasix 40 mg IV every 12 hours for now. We will switch over to oral depending on oxygen supplementation. Monitor intake, output. Daily weights. Elevated troponin: Most likely type II [place]. NSTEMI unlikely for now. Case discussed with Dr. Holliday from cardiology. If patient remains euvolemic we will plan for stress test tomorrow morning. N.p.o. after midnight. Check HbA1c, lipid panel. Continue with aspirin, Plavix, statin for now. Patient already on full dose Lovenox for anticoagulation for A. fib with RVR. Continue the same. Appreciate cardiology recommendations. High anion gap metabolic acidosis: Overnight given bicarb. Anion gap closing. Most likely because of starvation ketosis. We will continue to monitor. She does not have any stigmata of metabolic acidosis for now. Continue other chronic medications for type 2 diabetes mellitus and hypertension . Full code Cardiac consistent carb diet DVT prophylaxis not indicated due to therapeutic use of Lovenox Coding Level of Care Code Acute Counter Intelligence for Chg Fwd Diagnoses New onset of congestive heart failure I50.9 Atrial fibrillation with RVR I48.91 NSTEMI (non-ST elevated myocardial infarction) I21.4
[2020-11-05 11:45] LABS: Glucose Point of Care 180 mg/dL (70-110)
--- NOTE | 2020-11-05 12:55 | NMCV_ITS ---
NM deonte perf SPECT r/s* [id number] Alexander Villalba Age: 75 Gender: M : 1945 Exam Date: 11/05/2020 07:40 Ordering Phys: Jesus Willis MD Technologist: ARA Rico Exam Location: [facility] Indications: DIFFICULTY BREATHING STRESS TEST Please see separate stress test report in [facility] for full findings IMAGE PROTOCOL Rest/Stress 1 Lexiscan Day Radiopharmaceutical Dose (mCi) Administration Site Administered by Rest: Tc-99m 11.0 IV ARA Ramsey Sestamibi Stress:Tc-99m 32.6 IV ARA Ramsey Sestamibi Rest: 05-Nov-2020 60 Discovery 630 Stress: 05-Nov-2020 30 Discovery 630 0.4mg Lexiscan. Images obtained in supine and prone position. SPECT RESULTS Technical Quality: Excellent Raw Data Analysis: Normal Image Corrections: No attenuation or motion correction applied Summed Stress Score: 8 Summed Rest Score: 9 Summed Difference Score: 1 PERFUSION FINDINGS Large area of fixed perfusion defect noted in basal to distal inferior inferoseptal and basal to mid anterior wall on both rest and stress images suggestive of old myocardial infarction versus artifact. FUNCTIONAL RESULTS (calculated via Gated SPECT) Stress Image LV EF (%): 73 Stress EDV (mL):82 TID: 0.9 Stress ESV (mL):22 Rest Image LV EF (%): 73 FUNCTIONAL FINDINGS: There is normal left ventricular systolic function. IMPRESSIONS Large area for myocardial infarction versus scarring noted in basal to distal inferior, inferoseptal and basal to mid anterior wall without lynnette-infarct ischemia. In the absence of wall motion abnormality cannot rule out artifact. In general the study is negative for ischemia. Adore Pennington MD (Electronically Signed) Final Date: 05 Nov 2020 14:04 S
[2020-11-05] MEDS: dilTIAZem ER (24HR) 300 mg Capsule PO (14:36)
--- NOTE | 2020-11-05 15:11 | P.DS_ITS ---
Discharge Providers Date of Admission: 11/03/20 23:12 Date of Discharge: November 05, 2020 Attending Provider at Admission: Adore Munoz MD Attending Provider at Discharge: Jesus Willsi MD Consults: Cardiology: Dr. Hahn Primary Care Provider: Jh Ramirez Diagnoses at Discharge Discharge Diagnosis (1) New onset of congestive heart failure: Status: Acute (2) Atrial fibrillation with RVR: Status: Acute (3) NSTEMI (non-ST elevated myocardial infarction): Status: Acute Reason for Visit Reason for Visit: DIFF BREATHING Hospital Course Hospital Course Alexander Villalba is a 75 year old male who has previous history of diabetes and hypertension cerebellar stroke presented today with chief complaint of shortness of breath. Patient is stating that his symptoms started 3 to 4 days ago which he is describing as short interval of acute shortness of breath with spontaneous resolution within seconds, he did not experience any fever, chest pain, productive cough, abdominal pain, diarrhea or dysuria. He is denying palpitations no previous history of A. fib or tachyarrhythmia. Denying previous history of CHF, [place]. He presented today after worsening of his symptoms Diagnostics in the ER revealed new onset CHF secondary to tachyarrhythmia, new onset A. fib RVR currently on Cardizem drip at 15 mg/h, hyperglycemia no signs of DKA high anion gap lactic acid is pending hypokalemia magnesium 2.2, NSTEMI. Patient was admitted to cardiac stepdown unit on amiodarone drip for A. fib with RVR. By the time he reached the floor patient was in normal sinus rhythm. He was started on oral Cardizem and amnio drip was stopped. Patient remained in sinus rhythm with frequent APCs. His Cardizem dose was uptitrated as per the heart rate and blood pressures. On admission he was found to have elevated troponins which is thought most likely secondary to type II AZ as patient remained chest pain-free but to rule out non-ST elevation [place] he underwent cardiac stress test on November 05, 2020 which showed large area of myocardial infarction with some scarring noted in the basal to distal inferior, inferior septal and basal to mid anterior wall without lynnette-infarct ischemia and it was deemed negative for ischemia. Patient also underwent echocardiogram which showed an EF of 60% with grade 1 diastolic dysfunction. He was discharged medically stable condition with advice to follow-up with his primary care provider within next 2 weeks and with cardiology within next 2 weeks as well. Physical Exam Narrative: EXAM NARRATIVE: General: No acute distress, AO x3, outside notes HEENT: PERRLA, pupils bilaterally equal and reactive Chest: Normal vesicular breath sounds, bilateral fine crackles, equal good air entry bilaterally CVS: S1-S2 regular, no murmurs, no tachycardia, no gallops, no rubs Abdomen: Soft, nontender, no organomegaly, bowel sounds present Neuro: No focal deficits, no facial deformity, AO x3, power 5/5 in all limbs Discharge Data Data Completed and Pending: Completed Studies During Hospitalization Category Date Time Status CT angio chest PE protcl [id number] Urge nt Cat Scan 11/03/20 19:47 Completed Sestamibi Stress Test Request Routi ne Exams 11/04/20 12:54 Draft XR chest 1V jessenia ble [id number] Urgent Exams 11/03/20 19:01 Completed NM deonte perf SPECT r/s* [id number] Routin e Nuc Med 11/05/20 12:55 Completed CV echo complete* [id number] Routine Ultrasound 11/04/20 23:12 Completed Pending at discharge Category Date Time Status Blood Culture Sta t Lab 11/04/20 04:08 Results Labs from last 24 hours 11/05/20 11/05/20 11/05/20 11:30 06:40 03:08 WBC RBC Hgb Hct MCV MCH MCHC RDW Plt Count MPV Neut % (Auto) Lymph % (Auto) [place] % (Auto) Eos % (Auto) Baso % (Auto) Neut # (Auto) Lymph # (Auto) [place] # (Auto) Eos # (Auto) Baso # (Auto) Nucleated RBC % (a uto) Nucleated RBCs # Sodium 132 L Potassium 3.0 L Chloride 95 L Carbon Dioxide 25 Anion Gap 15.0 BUN 20 Creatinine 1.0 GFR Calculation Not Reportable Glucose 151 H POC Glucose 180 H 152 H Estimat Average Gl ucose Hemoglobin A1c Calculated Osmolal ity 280 L Calcium 8.2 L Total Bilirubin 0.6 AST 27 ALT 31 Alkaline Phosphata se 74 Total Protein 6.1 L Albumin 3.5 Globulin 2.6 11/05/20 11/05/20 11/04/20 03:08 03:08 20:38 WBC 11.0 H RBC 3.72 L Hgb 11.0 L Hct 32.3 L MCV 86.8 MCH 29.6 MCHC 34.1 RDW 13.6 Plt Count 259 MPV 10.6 H Neut % (Auto) 74.9 Lymph % (Auto) 15.3 [place] % (Auto) 8.7 Eos % (Auto) 0.4 Baso % (Auto) 0.2 Neut # (Auto) 8.22 H Lymph # (Auto) 1.7 [place] # (Auto) 1.0 H Eos # (Auto) 0.0 Baso # (Auto) 0.0 Nucleated RBC % (a uto) 0 Nucleated RBCs # 0.0 Sodium Potassium Chloride Carbon Dioxide Anion Gap BUN Creatinine GFR Calculation Glucose POC Glucose 184 H Estimat Average Gl ucose 128 Hemoglobin A1c 6.1 H Calculated Osmolal ity Calcium Total Bilirubin AST ALT Alkaline Phosphata se Total Protein Albumin Globulin 11/04/20 16:50 WBC RBC Hgb Hct MCV MCH MCHC RDW Plt Count MPV Neut % (Auto) Lymph % (Auto) [place] % (Auto) Eos % (Auto) Baso % (Auto) Neut # (Auto) Lymph # (Auto) [place] # (Auto) Eos # (Auto) Baso # (Auto) Nucleated RBC % (a uto) Nucleated RBCs # Sodium Potassium Chloride Carbon Dioxide Anion Gap BUN Creatinine GFR Calculation Glucose POC Glucose 170 H Estimat Average Gl ucose Hemoglobin A1c Calculated Osmolal ity Calcium Total Bilirubin AST ALT Alkaline Phosphata se Total Protein Albumin Globulin Addt'l Data from Hospital Stay: Laboratory Results WBC 11.0 10^3/uL (4.0 -10.0) H 11/05/20 03:08 RBC 3.72 10^6/uL (4.1 -5.3) L 11/05/20 03:08 Hgb 11.0 g/dL (11.7-1 6.6) L 11/05/20 03:08 Hct 32.3 % (42.0-52.0 ) L 11/05/20 03:08 MCV 86.8 fL (80-94) 11/05/20 03:08 MCH 29.6 pg (28.0-34. 0) 11/05/20 03:08 MCHC 34.1 g/dL (30.0-3 6.0) 11/05/20 03:08 RDW 13.6 % (12.1-15.1 ) 11/05/20 03:08 Plt Count 259 10^3/cmm (130 -400) 11/05/20 03:08 MPV 10.6 fL (7.4-10.4 ) H 11/05/20 03:08 Neut % (Auto) 74.9 % 11/05/20 03:08 Lymph % (Auto) 15.3 % 11/05/20 03:08 [place] % (Auto) 8.7 % 11/05/20 03:08 Eos % (Auto) 0.4 % 11/05/20 03:08 Baso % (Auto) 0.2 % 11/05/20 03:08 Neut # (Auto) 8.22 10^3/uL (1.8 -7.7) H 11/05/20 03:08 Lymph # (Auto) 1.7 10^3/uL (0.8- 4.8) 11/05/20 03:08 [place] # (Auto) 1.0 10^3/uL (0.2- 0.9) H 11/05/20 03:08 Eos # (Auto) 0.0 10^3/uL (0.0- 0.8) 11/05/20 03:08 Baso # (Auto) 0.0 10^3/uL (0.0- 0.1) 11/05/20 03:08 Nucleated RBC % (a uto) 0 % 11/05/20 03:08 Nucleated RBCs # 0.0 /100WBC 11/05/20 03:08 D-Dimer 1.65 ug/mIFEU (0- 0.59) H 11/03/20 19:02 Specimen Type Arterial 11/03/20 04:20 Sample Site Radial, right 11/03/20 04:20 ABG pH 7.47 (7.35-7.45) H 11/03/20 04:20 ABG pCO2 28.5 mmHg (35-45) L 11/03/20 04:20 ABG pO2 86.5 mmHg (80.0-1 00.0) 11/03/20 04:20 ABG HCO3 20.9 mmol/L (22-2 6) L 11/03/20 04:20 ABG Base Excess -1.7 mmol/L (-2.0 -2.0) 11/03/20 04:20 Indra Test Pos 11/03/20 04:20 Hematocrit 36.6 % (42-52) L 11/03/20 04:20 O2 Delivery Device Nc 11/03/20 04:20 O2 Liters/Min 2.0 % 11/03/20 04:20 Jewelry Maker ID michael 11/03/20 04:20 Sodium 132 mmol/L (136-1 45) L 11/05/20 03:08 Potassium 3.0 mmol/L (3.5-5 .1) L 11/05/20 03:08 Chloride 95 mmol/L (98-107 ) L 11/05/20 03:08 Carbon Dioxide 25 mmol/L (22-29) 11/05/20 03:08 Anion Gap 15.0 (5-19) 11/05/20 03:08 BUN 20 mg/dL (8-23) 11/05/20 03:08 Creatinine 1.0 mg/dL (0.7-1. 2) 11/05/20 03:08 GFR Calculation Not Reportable 11/05/20 03:08 Glucose 151 mg/dL (65-115 ) H 11/05/20 03:08 POC Glucose 180 mg/dL (70-110 ) H 11/05/20 11:30 Estimat Average Gl ucose 128 11/05/20 03:08 Hemoglobin A1c 6.1 % (4.0-6.0) H 11/05/20 03:08 Calculated Osmolal ity 280 mOsm/kg (285- 295) L 11/05/20 03:08 Lactate 3.1 mmol/L (0.5-2 .2) H 11/04/20 01:12 Calcium 8.2 mg/dL (8.5-10 .5) L 11/05/20 03:08 Magnesium 2.2 mg/dL (1.7-2. 3) 11/03/20 19:02 Iron 29 ug/dL (59-158) L 11/04/20 04:00 TIBC 223 mcg/dl 11/04/20 04:00 % Saturation 13.0 % (20-50) L 11/04/20 04:00 Unsat Iron Binding 194 ug/dL (112-34 7) 11/04/20 04:00 Total Bilirubin 0.6 mg/dL (0.15-1 .2) 11/05/20 03:08 AST 27 U/L (0-40) 11/05/20 03:08 ALT 31 U/L (0-41) 11/05/20 03:08 Alkaline Phosphata se 74 IU/L (40-130) 11/05/20 03:08 Troponin T Baselin e 112 ng/L (0-15) H* 11/03/20 19:02 Troponin T 120 Min erasmo 144.9 ng/L (0-15) H 11/03/20 20:55 Delta Troponin T 32.9 ABS# (0-10) H* 11/03/20 20:55 Troponin T Hi Sens 6Hr 93.58 ng/L (0-15) H 11/04/20 01:12 Troponin T Hi Sens 6Hr Delta -18.42 ng/L (0-12 ) L 11/04/20 01:12 NT-Pro-B Natriuret Pep 62949 pg/mL (0-12 5) H 11/03/20 19:02 Total Protein 6.1 g/dL (6.6-8.7 ) L 11/05/20 03:08 Albumin 3.5 g/dL (3.5-5.2 ) 11/05/20 03:08 Globulin 2.6 g/dL (1.3-4.6 ) 11/05/20 03:08 Triglycerides 83 mg/dL (0-150) 11/04/20 04:00 Cholesterol 83 mg/dL (0-200) 11/04/20 04:00 LDL Cholesterol, C alc 35 mg/dL (50-129) L 11/04/20 04:00 Total VLDL Cholest mane 17 mg/dL (0-30) 11/04/20 04:00 HDL Cholesterol 31 mg/dL (60-100) L 11/04/20 04:00 Cholesterol/HDL Ra louie 2.68 mg/dL (1.0-5 .00) 11/04/20 04:00 Procalcitonin 2.24 ng/mL (0-0.5 ) H 11/04/20 04:00 TSH 6.15 uIU/mL (0.27 -4.20) H 11/04/20 04:00 Free T4 1.69 ng/dL (0.82- 1.77) 11/04/20 04:00 Free T3 2.7 PG/ML (2.0-4. 4) 11/04/20 04:00 Urine Color Yellow (Yellow) 11/04/20 04:37 Urine Appearance Clear (CLEAR) 11/04/20 04:37 Urine pH 5 (5-7) 11/04/20 04:37 Ur Specific Gravit y 1.010 (1.005-1.0 30) 11/04/20 04:37 Urine Protein 1+ (Negative) H 11/04/20 04:37 Urine Glucose (UA) 2+ (Normal) 11/04/20 04:37 Urine Ketones 1+ (Negative) H 11/04/20 04:37 Urine Blood 2+ (Negative) H 11/04/20 04:37 Urine Nitrate Negative (Negati ve) 11/04/20 04:37 Urine Bilirubin Neg (Negative) 11/04/20 04:37 Urine Urobilinogen Norm mg/dL (Negat ivy) 11/04/20 04:37 Ur Leukocyte Nieves ase Negative (Negati ve) 11/04/20 04:37 Urine RBC 5-10 /hpf (0-2) H 11/04/20 04:37 Urine WBC 0-4 /hpf (0-5) H 11/04/20 04:37 Ur Squamous Epith Cells 5-10 /hpf (0-5) H 11/04/20 04:37 Amorphous Sediment Not Reportable 11/04/20 04:37 Urine Bacteria 1+ /hpf (NONE) H 11/04/20 04:37 Salicylates 2.3 mg/dL (3-10) L 11/04/20 01:12 Serum Ketones Negative (Negati ve) 11/03/20 19:02 Influenza Type A A g Negative (Negati ve) 11/03/20 19:25 Influenza Type B A g Negative (Negati ve) 11/03/20 19:25 Impressions Chest X-Ray 11/03/20 19:01 IMPRESSION: Left lower lobe pneumonia suspected. PA and lateral radiography would provide greater specificity. Chest CTA 11/03/20 19:47 IMPRESSION: 1. Negative for pulmonary embolism. 2. 3rd spacing of fluid with bilateral pleural effusions and possibly mild diffuse interstitial edema. 3. Background emphysema. Radiation Dose CTDIVOL = (mGy): DLP = 594.54 (mGy-cm) Myocardial perfusion scan nuclear medicine: IMPRESSIONS Large area for myocardial infarction versus scarring noted in basal to distal inferior, inferoseptal and basal to mid anterior wall without lynnette-infarct ischemia. In the absence of wall motion abnormality cannot rule out artifact. In general the study is negative for ischemia. Adore Pennington MD (Electronically Signed) Final Date: 05 Nov 2020 14:04 Echocardiogram: CONCLUSIONS Normal left ventricular size and systolic function, EF 60 %. Grade I/IV diastolic dysfunction (abnormal relaxation filling pattern), normal to mildly elevated filling pressures. Normal cardiac chamber sizes No significant stenotic or regurgitant lesions There is no pericardial effusion. There are no intracardiac masses. No previous study is available for comparison. Dr Zack Dodge MD [facility] (Electronically Signed) Final Date: 04 Nov 2020 20:02 Vitals: Last Vital Signs Temp 97.1 F L 11/05/20 11:00 Pulse 102 H 11/05/20 11:00 Resp 20 H 11/05/20 11:00 BP 144/73 11/05/20 11:00 Pulse Ox 99 11/05/20 11:00 Discharge Plan Discharge Patient Disposition: Home Condition: Stable Prescriptions: New aspirin 81 mg Tablet,Delayed Release (Dr/Ec) 81 mg PO BEDTIME Qty: 30 RF: 0 lisinopril 20 mg Tablet 20 mg PO DAILY@08 Qty: 30 RF: 0 diltiazem HCl [Cardizem CD] 360 mg capsule,extended release 24hr 360 mg PO DAILY Qty: 30 RF: 0 furosemide [Lasix] 40 mg tablet 40 mg PO DAILY Qty: 30 RF: 0 Eliquis 5 mg tablet 5 mg PO BID Qty: 60 RF: 0 Continued metformin 1,000 mg tablet 500 mg PO BID@18 RF: 0 pravastatin 20 mg Tablet 10 mg PO BEDTIME RF: 0 Fish Oil 1 cap PO PRN RF: 0 calcium 1 tab PO PRN RF: 0 Paxil 40 mg tablet 40 mg PO DAILY@18 RF: 0 Discontinued lisinopril-hydrochlorothiazide 20-25 mg tablet 1 tab PO DAILY@08 RF: 0 aspirin 325 mg Tablet 325 mg PO BEDTIME RF: 0 metoprolol tartrate 100 mg tablet 50 mg PO BID@ RF: 0 No Action ProAir HFA 90 mcg/actuation Hfa Aerosol Inhaler 2 puff INHALATION Q4H PRN (Reason: Shortness Of Breath) RF: 0 Discharge Orders: Discharge Order (Routine); Ordered 11/05/20 Ordered By: Jesus Willis Referrals: Angelo Hahn M.D [Physician] - 2 weeks Jh Ramirez FNP [Primary Care Provider] - Discharge Diet: Cardiac and Diabetic Discharge Activity: Resume usual activity Patient Instructions: Opioid Safety Activity Restrictions/Additional Instructions: Follow-up with your primary care provider within the next 2 weeks. Repeat BMP when you see your primary care provider. Please follow-up with Dr. Hahn from cardiology next 2 weeks. Discharge Attestations Time Spent in Discharge Care*: greater than 30 min Specific Discharge Activities: educating patient, discussing with pcp/other providers, discussing with human services case manager/social workers/dc planners, documenting/other paperwork and evaluating patient/reviewing data Status at Discharge: Cognitive status at discharge: cognitively intact , Behavioral status at discharge: cooperative , Functional status at discharge: independent ambulation Overall status at discharge: patient is back to baseline Quality Metrics Clinical Quality Measures During this hospital stay, did patient experience: None Coding Level of Care Code Acute Chg FW DC note Diagnoses New onset of congestive heart failure I50.9 Atrial fibrillation with RVR I48.91 NSTEMI (non-ST elevated myocardial infarction) I21.4
[2020-11-05 16:23] LABS: Glucose Point of Care 155 mg/dL (70-110)
== END 2020-11-05 18:40 | disposition home or self-care (01) | DRG 871 ==
LOC: ER 22:19 → CSU 11-04 07:11
PROVIDERS: Admitting Provider Internal Medicine; Emergency Provider Emergency Medicine; PCP Nurse Practitioner Family; Visit Provider Student in an Organized Health Care Education/Training Program
DX: A41.9 Sepsis, unspecified organism (principal); J18.9 Pneumonia, unspecified organism; I50.31 Acute diastolic (congestive) heart failure; I21.A1 Myocardial infarction type 2; E87.2 Acidosis; E83.51 Hypocalcemia; E11.65 Type 2 diabetes mellitus with hyperglycemia; I11.0 Hypertensive heart disease with heart failure; Z86.73 Personal history of transient ischemic attack (TIA), and cerebral infarction without residual deficits; I48.91 Unspecified atrial fibrillation; E87.6 Hypokalemia; D64.9 Anemia, unspecified; E78.5 Hyperlipidemia, unspecified; Z79.84 Long term (current) use of oral hypoglycemic drugs
CPT/HCPCS: 36415; 36416; 36600; 71045; 71275; 78452; 80048; 80053; 80061; 80307; 81001; 82009; 82803; 82962; 83036; 83540; 83550; 83605; 83735; 83880; 84145; 84439; 84443; 84481; 84484; 85025; 85378; 86403; 87040; 87449; 87804; 93005; 93017; 93306; 96365; 96372; 99285; A9500; J0610; J1650; J1815; J1940; J2785; J3490; J7050; Q9967

== ENCOUNTER 2024-05-08 12:02 | Emergency (ER) | payer OTHER, MEDICARE, SELFPAY ==
[2024-05-08 12:03] VITALS: BP 64/34; PULSE 54; RESP 21; TEMP 36.4; O2SAT 94; BMI 23.9
--- NOTE | 2024-05-08 12:04 | ECG_ITS ---
[employer] Test Date: 2024-05-08 Pat Name: Alexander Villalba Department: Room: Gender: Male [place]: : 1945 Requested By: Bebeto Alexis Order Number: [id number] Anamaria MD: Zack Dodge M.D. Measurements Intervals [place] Rate: 54 P: 0 NJ: 0 QRS: -36 QRSD: 134 T: 50 QT: 489 QTc: 465 Interpretive Statements Possible atrial fibrillation with a slow ventricular response LEFT AXIS DEVIATION [QRS AXIS < -30] INTRAVENTRICULAR CONDUCTION DELAY [130+ ms QRS DURATION] POSSIBLE LEFT VENTRICULAR HYPERTROPHY [VOLTAGE CRITERIA PLUS LAE OR QRS WIDENING] POSSIBLE SEPTAL MYOCARDIAL INFARCTION , PROBABLY OLD [30 ms Q WAVE IN V1/V2] LATERAL MYOCARDIAL INFARCTION , PROBABLY OLD [40+ ms Q WAVE AND/OR ST/T ABNORMALITY IN I/aVL/V5/V6] Compared to ECG 11/04/2020 01:24:27 Intraventricular conduction delay now present.Myocardial infarct finding now present Atrial fibrillation no longer present.T-wave abnormality no longer present Electronically Signed On 05-10-2024 21:45:47 SHEET MANAGER by Zack Dodge M.D. [email or web address]
--- NOTE | 2024-05-08 12:07 | XR_ITS ---
WS: [id number] XR chest 1V portable [id number] REASON FOR EXAM: sob FINDINGS: Moderate tortuosity, calcification, and tortuosity of the thoracic aorta. Normal heart size. No acute pulmonary parenchymal or pleural abnormality. No lung nodule or lung mass. Significant degenerative spondylosis in the mid and lower thoracic spine. XR/XR chest 1V portable [id number] IMPRESSION: No acute chest abnormality.
--- NOTE | 2024-05-08 12:11 | CTR_ITS ---
PROCEDURE INFORMATION: Exam: CT Head Without Contrast Exam date and time: 05/08/2024 1:21 PM Age: 79 years old Clinical indication: Altered mental status/memory loss; Additional info: AMS TECHNIQUE: Imaging protocol: Computed tomography of the head without contrast. Radiation optimization: All CT scans at this facility use at least one of these dose optimization techniques: automated exposure control; mA and/or kV adjustment per patient size (includes targeted exams where dose is matched to clinical indication); or iterative reconstruction. COMPARISON: No relevant prior studies available. RADIATION DOSE METRICS: Total DLP (mGy-cm): 2312.39 FINDINGS: Brain: Moderate nonspecific white matter low attenuation which may be related to microvascular ischemic changes. No acute confluent lobar ischemic infarct. Right caudate head lacune. Encephalomalacia is seen involving the inferior and medial left cerebellum compatible with old infarct. No acute intracranial hemorrhage. Cerebral ventricles: The ventricles and sulci are prominent in size compatible with moderate atrophy. Paranasal sinuses: No fluid levels. Mastoid air cells: Visualized mastoid air cells are well aerated. Bones: No acute calvarial fracture. Soft tissues: Visualized soft tissues are unremarkable. CT/CT head wo con* [id number] IMPRESSION: No acute intracranial abnormality. If symptoms persist, consider further evaluation with MRI, if MRI is clinically safe to obtain.
[2024-05-08] MEDS: norepinephrine 4 MG/250 ML BAG 75 MG IV (12:19)
--- NOTE | 2024-05-08 12:20 | PC.NURSE ---
PER DR. RODRIGUEZ TO START LEVOPHED AT [facility].
--- NOTE | 2024-05-08 12:26 | XR_ITS ---
WS: [id number] XR chest 1V portable [id number] REASON FOR EXAM: post central line FINDINGS: A right internal jugular vein central catheter has been placed. The tip is at the cavoatrial junction . The chest is otherwise unchanged compared to the examination of 30 minutes ago. XR/XR chest 1V portable [id number] IMPRESSION: Right internal jugular central venous line placement in proper position.
--- NOTE | 2024-05-08 12:28 | W.ED.AMS ---
HPI - Altered Mental Status General: Chief Complaint: Altered Mental Status Stated Complaint: unresponsive Time Seen by Provider: 05/08/24 12:04 Source: EMS Mode of arrival: EMS Limitations: altered mental status History of Present Illness: 71-year-old male who presents by EMS with hypotension along with altered mental status. Per EMS family states that patient had went to bed last night and this morning was not waking up was unresponsive EMS states they arrived blood pressures in the 50s I given him 2 doses of push dose epinephrine pressures currently still in the 60s. Patient here is unresponsive will not respond to painful stimuli does not answer any questions EMS states family is poor historians I tried to call family their phone is disconnected. Related Data Home Medications Medication Instructions Recorded Confirmed metformin 1,000 mg tablet 500 mg PO BID@08,18 09/17/19 05/08/24 Fish Oil 1 cap PO PRN 11/03/20 05/08/24 pravastatin 20 mg tablet 10 mg PO BEDTIME 11/03/20 05/08/24 glipizide 5 mg tablet 5 mg PO DAILY 12/12/20 05/08/24 Previous Rx's Medication Instructions Recorded apixaban 5 mg tablet (Eliquis) 5 mg PO BID #60 tabs 11/05/20 aspirin 81 mg tablet,delayed 81 mg PO BEDTIME #30 tabs 11/05/20 release diltiazem HCl 360 mg 360 mg PO DAILY #30 caps 11/05/20 capsule,extended release 24 hr (Cardizem CD) lisinopril 20 mg tablet 20 mg PO DAILY@08 #30 tabs 11/05/20 Allergies Allergy/AdvReac Type Severity Reaction Status Date / Time No Known Allergies Allergy Verified 01/27/21 08:31 Review of Systems General: Reports: ROS unobtainable due to mental status [facility] ED PFSH: Medical History Clavicle fracture Anemia Cerebellar stroke Dyslipidemia HTN (hypertension) Surgical History H/O tooth extraction Family History Other Cancer Social History Smoking and tobacco/nicotine status: never used tobacco/nicotine Second hand smoke exposure: No Alcohol intake: never Substance/Drug Use: never Housing: House Physical Exam Const: COMMON NORMALS: negative for patient oriented x3 and negative for alert GENERAL APPEARANCE: frail appearing HENMT: COMMON NORMALS: normocephalic and atraumatic HEAD & SCALP: normocephalic and atraumatic Eye: COMMON NORMALS: conjunctivae normal CONJUNCTIVA: Yes conjunctivae normal Neck/C-Spine: COMMON NORMALS: full ROM and supple Chest: COMMONS NORMALS: normal inspection of the chest Resp: COMMON NORMALS: normal respiratory effort, No retractions, No use of accessory muscles and clear to auscultation bilaterally AUSCULTATION: clear to auscultation bilaterally Cardio: COMMON NORMALS: regular rate, regular rhythm and No murmurs present (Cardio) RATE: regular rate RHYTHM: regular rhythm GI: COMMON NORMALS: Normal to inspection, nondistended, normoactive bowel sounds present, Soft to palpation and no masses PALPATION: Yes Soft to palpation Extremity: COMMON NORMALS: normal to inspection and full ROM Neuro: COMMON NORMALS: negative for patient oriented x3 SENSORIUM/ORIENTATION: No alert Psych: COMMON NORMALS: negative for mental status grossly normal Skin: COMMON NORMALS: no rashes or lesions noted and no wounds GENERAL SKIN EXAM: no rashes or lesions noted Procedures Central Line Placement Right IJ: Time Out Performed: Yes Patient Placed on Monitor/Pulse Ox: Yes MD Prep: mask, gown and gloves Central Line Prep: Povidone-Iodine 1% Local Anesthetic: lidocaine 1% Amount of anesthesia used (mL): 3 Ultrasound Used for Placement: Yes Central Line Lumen Inserted: triple Post Procedure: sutured in place, good blood return and sterile dressing applied Post Procedure X-Ray: tip of catheter in good position and no pneumothorax seen Patient Tolerated Procedure: well Complications: none Procedural Sedation Indication: other (sedation for ct) ASA Class: III Time of Last PO Intake: 00:00 Preparation: director cardiac applied, pulse oximeter and supplemental O2 applied Ketamine dose (mg): 100 Patient Tolerated Procedure: well Complications: none Course Vital Signs: Vital signs: Vital Signs Temperature 97.6 F 05/08/24 12:03 Pulse Rate 45 L 05/08/24 14:32 Respiratory Rate 27 H 05/08/24 13:11 Blood Pressure 64/35 05/08/24 14:23 Pulse Oximetry 100 05/08/24 14:32 Oxygen Delivery Me thod Nasal Cannula 05/08/24 14:23 Oxygen Flow Rate 6 05/08/24 14:23 Fraction of Inspir ed Oxygen 50 05/08/24 14:32 MDM - Altered Mental Status Medical Decision Making Patient presents here in severe septic shock central line was placed on patient is given fluids antibiotics he started on multiple pressors he continued be hypotensive. Patient seen in the ER by Dr. Kim as well who had spoke to family and decided to make patient comfort care. Patient did and time of was called at 1531. Medical Records I reviewed the patient's medical records. Lab Data I reviewed the patient's lab results. 05/08/24 12:28 05/08/24 12:[address] 05/08/24 12:11 IMPRESSION: No acute intracranial abnormality. If symptoms persist, consider further evaluation with MRI, if MRI is clinically safe to obtain. Chest X-Ray 05/08/24 12:26 IMPRESSION: Right internal jugular central venous line placement in proper position. Chest/Abdomen/Pelvis CT 05/08/24 12:31 IMPRESSION: 1. No pulmonary emboli. 2. Severe bronchitis , reactive airways disease, or peribronchial edema (worse in the right lung). 3. 4 mm triangular lung nodule abutting on the right minor fissure. Most compatible with an intrapulmonary lymph node. No follow-up is recommended according to current guidelines. 4. Mild interstitial pulmonary edema. IMPRESSION: 1. Concern for possibly acalculous cholecystitis or artifact from motion. Follow-up ultrasound is recommended for clarification. 2. Incidental findings as above. COMMENTS: Consistent with the [employer]'s Incidental Findings Committee white paper (J Am Danny Radiol 2018): Any incidental renal lesion less than 1 cm or classified as too small to characterize, or any incidental cystic renal lesion characterized as simple-appearing, is likely benign. No follow-up imaging is recommended for these lesions per consensus recommendations based on imaging criteria. Gallbladder Ultrasound 05/08/24 14:07 IMPRESSION: 1. Extremely limited evaluation of the RIGHT upper quadrant. 2. Liver is enlarged. No bile duct dilatation. 3. Gallbladder is poorly visualized. Gallbladder is not hydropic. There is diffuse gallbladder wall thickening. No stones are identified. No significant amount of ascites is identified. Diffuse gallbladder wall thickening can be seen with hepatocellular disease or acalculous cholecystitis. Laboratory Results WBC 19.48 10^3/uL (3.29-11.43) H 05/08/24 12:28 RBC 3.48 10^6/uL (3.85-5.65) L 05/08/24 12:28 Hgb 10.30 g/dL (11.27-16.99) L 05/08/24 12:28 Hct 31.5 % (37-53) L 05/08/24 12:28 MCV 90.5 fl (82-101) 05/08/24 12:28 MCH 29.6 pg (27-33) 05/08/24 12:28 MCHC 32.7 g/dL (30-55) 05/08/24 12:28 RDW 14.6 % (12.1-15.1) 05/08/24 12:28 Plt Count 323 10^3/cmm (157-399) 05/08/24 12:28 MPV 8.8 fL (7.4-10.4) 05/08/24 12:28 Neut % (Auto) 85.5 % 05/08/24 12:28 Lymph % (Auto) 8.1 % 05/08/24 12:28 [place] % (Auto) 3.2 % 05/08/24 12:28 Eos % (Auto) 0.5 % 05/08/24 12:28 Baso % (Auto) 0.4 % 05/08/24 12:28 Neut # (Auto) 16.65 10^3/uL (1.8-7.7) H 05/08/24 12:28 Lymph # (Auto) 1.6 10^3/uL (0.8-4.8) 05/08/24 12:28 [place] # (Auto) 0.6 10^3/uL (0.2-0.9) 05/08/24 12:28 Eos # (Auto) 0.1 10^3/uL (0.0-0.8) 05/08/24 12:28 Baso # (Auto) 0.1 10^3/uL (0.0-0.1) 05/08/24 12:28 Nucleated RBC % (auto) 0 % 05/08/24 12:28 Nucleated RBCs # 0.0 /100WBC 05/08/24 12:28 PT 64.00 SECONDS (12.1-14.9) H 05/08/24 12:28 INR 7.10 (0.8-1.2) H* 05/08/24 12:28 Specimen Type Arterial 05/08/24 12: Sample Site Brachial, left 05/08/24 12:26 ABG pH 7.22 (7.35-7.45) L 05/08/24 12:26 ABG pCO2 23.2 mmHg (35-45) L 05/08/24 12: ABG pO2 109.0 mmHg (80.0-100.0) H 05/08/24 12: ABG PO2/FiO2 Ratio 363 05/08/24 12: ABG HCO3 9.5 mmol/L (22-26) L 05/08/24 12: ABG O2 Saturation 97.9 05/08/24 12:26 ABG Base Excess -16.5 mmol/L (-2.0-2.0) L 05/08/24 12:26 Indra Test N/a 05/08/24 12:26 A-a O2 Gradient 9.3 mmHg (5-10) 05/08/24 12:26 Hematocrit 33.2 % (42-52) L 05/08/24 12:26 Hgb O2 Saturation 96.8 % (95-100) 05/08/24 12:26 Carboxyhemoglobin 1.1 %THgb (0.4-20.1) 05/08/24 12:26 Methemoglobin 0.1 % (0.4-1.5) L 05/08/24 12:26 Total Hemoglobin 10.8 g/dL (14-18) L 05/08/24 12:26 Sodium 138.0 mmol/L (131-143) 05/08/24 12:26 Potassium 3.6 mmol/L (3.5-5.0) 05/08/24 12:26 Glucose 250.0 mg/dL (70-115) H 05/08/24 12:26 Ionized Calcium 1.0 mmol/L (1.1-1.4) L 05/08/24 12:26 O2 Delivery Device Nc 05/08/24 12:26 O2 Liters/Min 2.5 % 05/08/24 12:26 FiO2 30.0 % 05/08/24 12:26 Stem Teacher ID glc 05/08/24 12:26 Sodium 137 mmol/L (136-145) 05/08/24 12:28 Potassium 3.7 mmol/L (3.5-5.1) 05/08/24 12:28 Chloride 102 mmol/L (98-107) 05/08/24 12:28 Carbon Dioxide 10 mmol/L (22-29) L 05/08/24 12:28 Anion Gap 28.7 (5-19) H 05/08/24 12:28 BUN 11 mg/dL (8-23) 05/08/24 12:28 Creatinine 1.2 mg/dL (0.7-1.2) 05/08/24 12:28 GFR Calculation Not Reportable 05/08/24 12:28 Glucose 264 mg/dL (65-115) H 05/08/24 12:28 Calculated Osmolality 293 mOsm/kg (285-295) 05/08/24 12:28 Lactic Acid 10.5 mmol/L (0.5-2.2) H* 05/08/24 12:28 Calcium 6.8 mg/dL (8.5-10.5) L 05/08/24 12:28 Magnesium 1.7 mg/dL (1.7-2.3) 05/08/24 12:28 Total Bilirubin 0.4 mg/dL (0.15-1.2) 05/08/24 12:28 AST 16 U/L (0-40) 05/08/24 12:28 ALT 10 U/L (0-41) 05/08/24 12:28 Alkaline Phosphatase 70 U/L (40-130) 05/08/24 12:28 Troponin T Baseline 30 ng/L (0-15) H 05/08/24 12:28 Troponin T 120 Minute 30.41 ng/L (0-15) H 05/08/24 14:21 Delta Troponin T 0.41 ABS# (0-10) 05/08/24 14:21 Total Protein 5.0 g/dL (6.6-8.7) L 05/08/24 12:28 Albumin 3.2 g/dL (3.5-5.2) L 05/08/24 12:28 Globulin 1.8 g/dL (1.3-4.6) 05/08/24 12:28 Urine Color Yellow (Yellow) 05/08/24 13:00 Urine Appearance Cloudy (CLEAR) A 05/08/24 13:00 Urine pH 8.0 (5-7) A 05/08/24 13:00 Ur Specific [place] 1.014 (1.005-1.030) 05/08/24 13:00 Urine Protein Trace (Negative) A 05/08/24 13:00 Urine Glucose (UA) Negative (Normal) 05/08/24 13:00 Urine Ketones Negative (Negative) 05/08/24 13:00 Urine Blood 2+ (Negative) A 05/08/24 13:00 Urine Nitrate Negative (Negative) 05/08/24 13:00 Urine Bilirubin Negative (Negative) 05/08/24 13:00 Urine Urobilinogen 1.0 mg/dL (Negative) 05/08/24 13:00 Ur Leukocyte Esterase Negative (Negative) 05/08/24 13:00 Urine RBC 21-50 /hpf (0-2) H 05/08/24 13:00 Urine WBC 6-10 /hpf (0-5) 05/08/24 13:00 Ur Squamous Epith Cells 0-5 /hpf (0-5) 05/08/24 13:00 Amorphous Sediment Not Reportable 05/08/24 13:00 Urine Bacteria None seen /hpf (NONE) 05/08/24 13:00 Hyaline Casts 1.65 /lpf 05/08/24 13:00 All radiology interpretation(s) finalized by discharge Critical Care Time Critical Care Time: Critical Care Time: Yes Total Critical Care Time: 75 Attestation: The high probability of a clinically significant, sudden or life threatening deterioration of the patient's cv system(s) required my full and direct attention, intervention and personal management. The critical care time is as shown. This time is in addition to time spent performing any reported procedures but includes the following: [x] Data and vital sign review and interpretation [x] Patient assessment, examination and intervention [x] Documentation [x] Medication orders and management Discharge Plan Discharge Patient Disposition: Admit Provider: Juancarlos Batista Clinical Impression: Altered mental status, Severe sepsis with septic shock Condition: Stable Coding Level of Care Code ED [place] Cal[employer]er for Tanisha Armendariz
--- NOTE | 2024-05-08 12:31 | CTR_ITS ---
PROCEDURE INFORMATION: Exam: CTA Chest With Contrast Exam date and time: 05/08/2024 1:25 PM Age: 79 years old Clinical indication: Other: Septic TECHNIQUE: Imaging protocol: Computed tomographic angiography of the chest with contrast. Exam focused on the arteries. 3D rendering (Not supervised by radiologist): MIP and/or 3D reconstructed images were created by the technologist. Radiation optimization: All CT scans at this facility use at least one of these dose optimization techniques: automated exposure control; mA and/or kV adjustment per patient size (includes targeted exams where dose is matched to clinical indication); or iterative reconstruction. Contrast material: OMNI 350; Contrast volume: 100 ml; Contrast route: INTRAVENOUS (IV); COMPARISON: CT angio chest PE protcl [id number] 11/03/2020 8:45 PM RADIATION DOSE METRICS: Total DLP (mGy-cm): 1047.65 FINDINGS: Limitations: Distal subsegmental pulmonary arterial branches are limited due to motion artifact. Tubes, catheters and devices: A right jugular central venous catheter is present, with its tip overlying the region of the superior vena cava. Pulmonary arteries: The pulmonary arteries are normal in course and caliber. No pulmonary emboli. Aorta: Moderate diffuse calcific atherosclerosis of the aorta. No aortic aneurysms. Thyroid: Heterogeneous thyroid gland with a micronodular appearance. Consider follow-up ultrasound in a nonemergent setting. Lungs: Diffuse bilateral bronchial wall thickening, worse in the right. Bilateral dependent atelectasis. Patchy consolidations in the right lung base. 4 mm triangular lung nodule abutting on the right minor fissure. Mild interlobular septal thickening noted throughout both lungs. No large airspace consolidations. Pleural spaces: There are no pleural effusions present. There is no evidence of pneumothorax. Heart: Calcifications of the aortic valve annulus. No cardiomegaly. No pericardial thickening or effusion. Coronary arteries: There is moderate atherosclerotic calcification of the coronary arteries. Lymph nodes: Enlarged lymph nodes in the mediastinum (for example in the pretracheal space measuring 1.3 cm and in the subcarinal space measuring up to 1.7 cm). Prominent right hilar lymph nodes are also present, although difficult to measure as they appear confluent. No other adenopathy. Diaphragm: Small hiatal hernia. Bones/joints: Cava chronically healed right mid clavicular fracture is suggested. New chronic compression fractures of T4, T5, T6, T7, T8, and T9 (worse at T9 where there is near complete loss of the vertebral body height anteriorly). No acute fracture or dislocation. No aggressive osseous lesions. Soft tissues: No acute body wall soft tissue findings. PROCEDURE INFORMATION: Exam: CT Abdomen And Pelvis With Contrast Exam date and time: 05/08/2024 1:25 PM Age: 79 years old Clinical indication: Other: Septic TECHNIQUE: Imaging protocol: Computed tomography of the abdomen and pelvis with contrast. Radiation optimization: All CT scans at this facility use at least one of these dose optimization techniques: automated exposure control; mA and/or kV adjustment per patient size (includes targeted exams where dose is matched to clinical indication); or iterative reconstruction. Contrast material: OMNI 350; Contrast volume: 100 ml; Contrast route: INTRAVENOUS (IV); COMPARISON: CT angio chest PE protcl [id number] 11/03/2020 8:45 PM RADIATION DOSE METRICS: Total DLP (mGy-cm): 1047.65 FINDINGS: Tubes, catheters and devices: A balloon bladder catheter is present. Liver: Scattered calcified liver granulomas are benign. Mild hyperemia in the right hepatic lobe at the level of the gallbladder fossa. Gallbladder and biliary ducts: Concern for mild gallbladder wall thickening and surrounding inflammation versus artifact from motion. There is no evidence of biliary ductal dilation. Pancreas: Diffuse atrophy of the pancreatic parenchyma. There is no pancreatic duct dilation. No pancreatic masses. Spleen: The spleen is normal. Adrenal glands: There is diffuse bilateral nonspecific adrenal enlargement, most likely related to acute illness. Kidneys and ureters: Multiple simple right renal cysts, largest measuring 2.9 cm. No follow-up recommended. The right kidney is otherwise unremarkable. No right hydroureter. No left hydroureter. Subcentimeter left renal hypodense lesions are too small to characterize but most probably benign representing cysts. Consider correlation with nonemergent ultrasound. Scattered multifocal areas of left renal cortical scarring. The left kidney is otherwise unremarkable. Stomach and bowel: Diffuse colonic diverticulosis. No bowel thickening. Stomach is decompressed and difficult to evaluate. The duodenum is unremarkable. Appendix: A normal appendix is identified. Intraperitoneal space: There is no evidence of free intraperitoneal or pelvic fluid. No intraperitoneal fluid collections. Vasculature: Moderate atherosclerotic calcification of the arterial vasculature. No aortic aneurysms. Lymph nodes: There is no evidence of lymphadenopathy. Urinary bladder: Small amount of intraluminal bladder gas, likely related to recent instrumentation. Bladder is decompressed and difficult to evaluate. Reproductive: Reproductive organs are unremarkable as visualized. Bones/joints: Bone demineralization. Moderate multilevel degenerative changes of the spine. No acutely displaced fractures. No aggressive osseous lesions. Soft tissues: No acute body wall soft tissue findings. CT/CT angio chest w abd pel w con IMPRESSION: 1. No pulmonary emboli. 2. Severe bronchitis , reactive airways disease, or peribronchial edema (worse in the right lung). 3. 4 mm triangular lung nodule abutting on the right minor fissure. Most compatible with an intrapulmonary lymph node. No follow-up is recommended according to current guidelines. 4. Mild interstitial pulmonary edema. IMPRESSION: 1. Concern for possibly acalculous cholecystitis or artifact from motion. Follow-up ultrasound is recommended for clarification. 2. Incidental findings as above. COMMENTS: Consistent with the [employer]'s Incidental Findings Committee white paper (J Am Danny Radiol 2018): Any incidental renal lesion less than 1 cm or classified as too small to characterize, or any incidental cystic renal lesion characterized as simple-appearing, is likely benign. No follow-up imaging is recommended for these lesions per consensus recommendations based on imaging criteria.
[2024-05-08 12:38] LABS: ABG PCO2 23.2 mmHg (35-45); ABG PH Result 7.22 (7.35-7.45); Alveolar-Arterial Oxygen Gradi 9.3 mmHg (5-10); Arterial Blood Gas Hematocrit 33.2 % (42-52); Base Excess ABG -16.5 mmol/L (-2.0-2.0); Blood Gas LPM 2.5 %; Blood Gas Operator Identificat glc; Blood Gas Sample Site Brachial, left; Blood Gas Sample Type Arterial; Carboxyhemoglobin 1.1 %THgb (0.4-20.1); HCO3 ABG 9.5 mmol/L (22-26); HGB O2 Sat 96.8 % (95-100); Methemoglobin 0.1 % (0.4-1.5); Oxygen Device NC; Oxygen Saturation ABG 97.9; PO2 FiO2 Ratio Arterial Blood 363; Potassium Level - ABG 3.6 mmol/L (3.5-5.0); Total Hemoglobin 10.8 g/dL (14-18)
[2024-05-08] MEDS: vasopressin 40 UNIT/100 ML PREMIX IV (12:46)
[2024-05-08] MEDS: piperacillin-tazobactam 3.375 GM in sodium chloride 0.9% (plus) 50 ML IV (12:47)
[2024-05-08] MEDS: VANCOMYCIN ADD-Vantage 1,000 MG in 0.9% NaCl ADD-Vantage 250 ML 250 MG IV (12:47)
[2024-05-08 12:56] LABS: Basophils # 0.1 10^3/uL (0.0-0.1); Basophils % 0.4 %; Eosinophils # 0.1 10^3/uL (0.0-0.8); Eosinophils % 0.5 %; Hematocrit 31.5 % (37-53); Lymphocytes # 1.6 10^3/uL (0.8-4.8); Lymphocytes % 8.1 %; Mean Corpuscular HGB Conc 32.7 g/dL (30-55); Mean Corpuscular Hemoglobin 29.6 pg (27-33); Mean Corpuscular Volume 90.5 fl (82-101); Mean Platelet Volume 8.8 fL (7.4-10.4); Monocytes # 0.6 10^3/uL (0.2-0.9); Monocytes % 3.2 %; Neutrophils # 16.65 10^3/uL (1.8-7.7); Neutrophils % 85.5 %; Nucleated Red Blood Cells % 0 %; Platelet Count 323 10^3/cmm (157-399); Red Blood Count 3.48 10^6/uL (3.85-5.65); Red Cell Distribution Width 14.6 % (12.1-15.1); White Blood Count 19.48 10^3/uL (3.29-11.43)
[2024-05-08 13:11] VITALS: BP 80/39; PULSE 54; RESP 27; O2SAT 96
[2024-05-08 13:11] LABS: Albumin Level 3.2 g/dL (3.5-5.2); Chloride 102 mmol/L (98-107); Potassium 3.7 mmol/L (3.5-5.1); Sodium 137 mmol/L (136-145)
[2024-05-08 13:13] LABS: Troponin(5th) Baseline 30 ng/L (0-15)
[2024-05-08] MEDS: ketamine 100 mg/mL Inj 5 mL IVP (13:16)
[2024-05-08 13:20] LABS: Lactic Sepsis W/Reflex 10.5 mmol/L (0.5-2.2)
[2024-05-08 13:29] LABS: Alanine Aminotransferase 10 U/L (0-41); Anion Gap 28.7 (5-19); Aspartate Amino Transferase 16 U/L (0-40); Blood Urea Nitrogen 11 mg/dL (8-23); Calcium 6.8 mg/dL (8.5-10.5); Carbon Dioxide 10 mmol/L (22-29); Creatinine Clr Calc Pharmacy 45.2276; Globulin 1.8 g/dL (1.3-4.6); Glucose 264 mg/dL (65-115); Magnesium 1.7 mg/dL (1.7-2.3); Osmolality Calculated 293 mOsm/kg (285-295); Total Bilirubin 0.4 mg/dL (0.15-1.2)
--- NOTE | 2024-05-08 13:33 | PC.PHAR ---
patient is from [facility] list is being faxed
[2024-05-08] MEDS: iohexol 350 mg/mL 500 mL Btl (per mL) IV (13:34)
[2024-05-08 13:37] LABS: Bilirubin Urine Negative (Negative); Blood Urine 2+ (Negative); Glucose Urine UA Negative (Normal); Ketones Urine Negative (Negative); Leukocyte Esterase Urine Negative (Negative); Nitrate Urine Negative (Negative); Protein Urine Trace (Negative); Specific Gravity, Urine 1.014 (1.005-1.030); Urine Appearance Cloudy (CLEAR); Urine Color Yellow (Yellow)
--- NOTE | 2024-05-08 13:37 | PC.PHAR ---
removed paroxetine,furosemide as they were [facility]
--- NOTE | 2024-05-08 13:38 | ECG_ITS ---
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1945 Requested By: Bebeto Alexis Order Number: [id number] Reading MD: JULIÁN ALANIZ Measurements Intervals [place] Rate: 45 P: 0 DE: 0 QRS: -61 QRSD: 132 T: 62 QT: 526 QTc: 455 Interpretive Statements Ventricular escape rythm INTRAVENTRICULAR CONDUCTION DELAY [130+ ms QRS DURATION] POSSIBLE ANTEROLATERAL MYOCARDIAL INFARCTION , OF INDETERMINATE AGE [30 ms Q WAVE IN I/aVL/V3-V6] Compared to ECG 05/08/2024 12:04:29 Left-axis deviation no longer present Myocardial infarct finding still present Electronically Signed On 05-11-2024 00:37:33 END USER CONSULTANT by JULIÁN ALANIZ [id number]
[2024-05-08 13:41] LABS: Add Urine Microscopic? YES; Bacteria Urine None Seen /hpf; Hyaline Casts Urine 1.65 /lpf; RBC Urine 21-50 /hpf (0-2); Squamous Epithelial Cell Urine 0-5 /hpf (0-5)
[2024-05-08] MEDS: EPINEPHrine 2.5 MG in sodium chloride 0.9% 250 ML 39.58 MG IV (13:46)
[2024-05-08 13:50] VITALS: BP 67/30; PULSE 47; O2SAT 94
[2024-05-08 13:53] LABS: UA Slide Review UA Slide Review Perf
[2024-05-08 13:55] LABS: Add Urine Culture? Yes
--- NOTE | 2024-05-08 14:07 | US_ITS ---
WS: [id number] RIGHT UPPER QUADRANT ULTRASOUND HISTORY: ruq pain COMPARISON: CT 05/08/2024 Liver: 19.4 cm in length. Enlarged liver. No mass identified. The entire liver is poorly visualized. Portal Vein: Not well visualized. Gallbladder: Gallbladder is poorly visualized. Gallbladder appears very slightly contracted with diff use wall thickening. No stones. Wall measures up to 6 mm. CBD: 0.5 cm Pancreas: Not visualized. Right kidney: 9.6 cm in length. Poorly visualized. Aorta and IVC: Poorly visualized. No ascites. US/US gall bladder [id number] IMPRESSION: 1. Extremely limited evaluation of the RIGHT upper quadrant. 2. Liver is enlarged. No bile duct dilatation. 3. Gallbladder is poorly visualized. Gallbladder is not hydropic. There is dif fuse gallbladder wall thickening. No stones are identified. No significant amou nt of ascites is identified. Diffuse gallbladder wall thickening can be seen wi th hepatocellular disease or acalculous cholecystitis.
[2024-05-08 14:11] VITALS: BP 61/33; PULSE 45; O2SAT 92
[2024-05-08 14:23] VITALS: BP 64/35; PULSE 43; O2SAT 83
[2024-05-08 14:25] LABS: Alkaline Phosphatase 70 U/L (40-130)
[2024-05-08 14:32] VITALS: PULSE 45; RESP 20; O2SAT 100
[2024-05-08 14:39] LABS: Reflex Lactate Order REFLEX LACTIC ORDERD
[2024-05-08 14:47] LABS: Troponin 5 2HR 30.41 ng/L (0-15); Troponin 5 2HR Delta 0.41 ABS# (0-10)
[2024-05-08] MEDS: DOBUTamine drip 500 MG/250 ML PREMIX 9.8 MG IV (14:55)
[2024-05-08] MEDS: hydrocortisone 100 mg/2 mL SDV IVP (15:04)
[2024-05-08 15:26] LABS: Lactic Acid level (Lactate) 13.6 mmol/L (0.5-2.2)
--- NOTE | 2024-05-08 15:28 | P.HP_ITS ---
Providers/Chief Complaint 2 Admitting Physician: Juancarlos Batista MD Primary Care Provider: PHILLY Frankel Chief Complaint: unresponsive History of Present Illness Alexander Villalba is a 79 year old male with a past medical history of type 2 diabetes mellitus, hypertension, history of cerebellar stroke, anemia, dyslipidemia who presents to [facility] due to unresponsive episode. Currently patient's on BiPAP, apneic at times on BiPAP, O2 sats in the low 80s, on 40%, tachypneic, respiratory rate in the 30s, currently in respiratory distress is bradycardic, hypotensive blood pressure 60s over 40s on 20 of Levophed, maximum dose of epinephrine, maximum dose of vasopressin, has received 2 L of fluid but continues to be hypotensive, on examination, pupils are pinpoint, nonreactive to light, patient is mottled all the way up to his abdomen, DP PT pulses are nonpalpable, cap refill greater than 2 seconds, does not withdraw from pain, he is GCS score is 1, currently on BiPAP therapy 40% FiO2, diminished lung sounds in bilateral lung pardo, patient is critically ill, poor prognosis. In discussion with ER provider, patient presents [facility] for altered mental status, per EMS family states that patient went to bed last night, when he woke this morning he was not responsive, blood pressures on arrival's were systolics in the mid 50s, he did receive 2 dose pushes of epinephrine, systolic blood pressure still in the 60s. Upon arrival patient was unresponsive, will not respond to painful stimuli. ER provider had placed a right internal jugular central venous catheter, he has received vancomycin, Zosyn, blood work shows lactic acid of 13.6, troponin of 30, creatinine 1.2, bicarb 10, pH 7.22, INR 7.1, white blood cell count 19.48, head CT within normal limits, anion gap 28.7, glucose 264 1. No pulmonary emboli. 2. Severe bronchitis , reactive airways disease, or peribronchial edema (worse in the right lung). 3. 4 mm triangular lung nodule abutting on the right minor fissure. Most compatible with an intrapulmonary lymph node. No follow-up is recommended according to current guidelines. 4. Mild interstitial pulmonary edema. IMPRESSION: 1. Concern for possibly acalculous cholecystitis or artifact from motion. Follow-up ultrasound is recommended for clarification. 2. Incidental findings as above gallbladder us US/US gall bladder 57370 IMPRESSION: 1. Extremely limited evaluation of the RIGHT upper quadrant. 2. Liver is enlarged. No bile duct dilatation. 3. Gallbladder is poorly visualized. Gallbladder is not hydropic. There is diffuse gallbladder wall thickening. No stones are identified. No significant amount of ascites is identified. Diffuse gallbladder wall thickening can be seen with hepatocellular disease or acalculous cholecystitis -Bili within normal limits, LFTs within normal limits, alk phos within normal limits. -EKG shows bradycardia, sinus, -Based upon above findings, patient's septic shock, respiratory distress, likely secondary pneumonia, -Severe refractory septic shock -I had a detailed discussion with patient's family, Tomeka Villalba. Evert Villalba. Evert tells me that Alexander does not have any family except him, and his daughter his daughter lives out in [place] and he does not have her contact number immediately available, nor can he provide me with her contact number. Evert tells me that his father was doing okay yesterday he had no significant complaints yesterday but this morning when he woke up he checked up on his father, he was unresponsive and would not wake up, so he called EMS. ? I discussed with patient's son Evert that currently patient's critical condition, his prognosis is poor, I am worried that given his respiratory distress his severe refractory septic shock, he has a high degree of suffering, and morbidity and mentality I do not believe Alexander will have a quality of life that family hopes, I do not believe he will survive this -Given his CT findings, highly suspicious for pneumonia, there is also concern for gallbladder infection, he has received broad-spectrum antibiotic therapy he is too unstable for any surgical intervention right now, I am also concerned for possible cardiac etiology, given his elevated troponins, cardiac echo has been ordered I have added on dobutamine, he also has evidence of DIC, given his elevated INR at 7.1 which carry significant morbidity and mortality, ? The other concern is currently his GCS score is 1, he is nonresponsive, ideally we should intubate him however trying to intubate him would likely result in his cardiac and likely , this is a difficult situation as we want to protect his airway however trying to do this would also carry significant morbidity and mortality ? I discussed Alexander's multiorgan failure, his urine output so far the emergency room has been lackluster, highly suspicious for acute tubular necrosis acute renal failure ? Has evidence of respiratory failure, - bedside echocardiogram has been ordered ? However patient's condition has been refractory to all maximal medical interventions, ? Evert tells me that for now he wants to talk to the rest of the family but for now they want me to do everything for his father, including intubation if needed, he remains a full code, ? Patient was managed in the ER with help of nursing staff to help further stabilize him as his blood pressures are still 60s over 40s heart rates in the 40s, he is on maximum doses of 4 pressors, ? His Levophed was increased from 30-40 ? I added dobutamine, dose was increased from 5, to 10-20 ? His epinephrine was increased to maximum dose ? His vaso was increased to maximum dose of 1.2 ? I had nursing staff pressure bag 4 L of fluid ? He was given 200 mL of 25 g of albumin ? He is already received broad-spectrum antibiotic therapy ? Patient was on above maximum doses of a lot of his pressor therapy ? Patient remained unresponsive, remained mottled up to the level of the abdomen, DP PT pulses were not palpable, cap refill greater than 2 seconds, abdomen was soft, distended, diminished bowel sounds, had evidence of mottling throughout the abdomen, pupils were pinpoint, nonreactive to light, patient would not withdraw from pain, would not localize pain, when I wake up, no response to sternal rub, was on 40% BiPAP his O2 sats were in the high 70s low 80s, at times would have apneic breathing, telemetry monitoring shows sinus bradycardia at times he would show a junctional rhythm -Patient was monitored in the ER for 40 to 50 minutes despite our best efforts, patient's condition continued to worsen, MAP still in the 30s to 40s ? Patient was in moderate to severe respiratory distress intercostal retractions suprasternal retractions, nasal flaring, tachypnea ? Overall his prognosis, status is critical, and worried that what we are doing now is beyond heroic, but as family wants to do everything will continue -Patient continues to not clinically improved, still in severe respiratory distress severe refractory shock, with multiorgan failure, encephalopathy, acute renal failure urine output has been lackluster continues to be mottled, -I called Evert again I spoke to Evert and Tomeka, both together -They do not have the number for Alexander's daughter immediately available so I can talk to her and Evert said that he will talk to his sister -I had a detailed discussion with him about Alexander's condition, he continues to clinically deteriorate, overall prognosis is poor, status is critical ? I have gone beyond maximal therapy and now I feel that my efforts are beyond heroic, I worry that Alexander is suffering with his respiratory distress, his MAP's remote remain in the low 30s to 40s indicating poor organ perfusion as she remains quite mottled up to the level of the abdomen, remains in severe respiratory distress, nonresponsive, GCS 1, has received antibiotics ? Discussed continuing medical interventions including a trial of intubation however he has a high risk of morbidity and mortality high risk of suffering ? We could also try other heroic interventions with his junctional rhythm could consider external pacing, we could also consider dialysis, ? However my concern is is that Alexander's condition is critical, his prognosis is poor his likelihood of recovery is fairly unlikely and I am worried that as he is before me that he is suffering, with his severe septic shock, severe respiratory failure, DIC, acute renal failure, septic shock from pneumonia, concern for gallbladder infection, encephalopathy, INR of 7.1, elevated troponins, ? We discussed Alexander's chronic medical problems of emphysema, diastolic CHF, history of diabetes, hypertension, CVA ? Options I discussed was continue medical interventions, giving him time, knowing that he still has a high risk of morbidity and mortality high risk of suffering, overall prognosis poor, -And considering more aggressive intervention such as intubation, possible external pacing, considering dialysis, ? Other option The other option I discussed was comfort care -Discussed comfort care in detail, easing Alexander's pain easing his suffering allowing him to pass away comfortably -After discussing with Evert only options available, discussed risk and benefits, he voiced understanding his voiced understanding, shared decision making, all questions answered, will he would like to proceed with comfort care -I again had a detailed discussion with Evert about what comfort care entails, easing Alexander's pain easing his suffering and allow him to pass away comfortably the goal would not be to hasten his but to allow him to pass away comfortably, understanding that currently his condition is critical prognosis is poor, -After discussing the risks and benefits of comfort care, Evert and his voiced understanding, all questions answered, agreed to proceed with comfort care -Proceed with comfort care -patient was made comfort care Review of Systems 2 General: Reports: ROS unobtainable due to mental status Medications/Allergies Home Medications Medication Instructions Recorded Confirmed Last Taken Type metformin 1,000 mg tablet 500 mg PO BID@08,18 09/17/19 05/08/24 11/03/20 08:00 History Fish Oil 1 cap PO PRN 11/03/20 05/08/24 Unknown History pravastatin 20 mg tablet 10 mg PO BEDTIME 11/03/20 05/08/24 11/01/20 History apixaban 5 mg tablet (Eliquis) 5 mg PO BID #60 tabs 11/05/20 05/08/24 Unknown Rx aspirin 81 mg tablet,delayed 81 mg PO BEDTIME #30 tabs 11/05/20 05/08/24 Unknown Rx release diltiazem HCl 360 mg 360 mg PO DAILY #30 caps 11/05/20 05/08/24 Unknown Rx capsule,extended release 24 hr (Cardizem CD) lisinopril 20 mg tablet 20 mg PO DAILY@08 #30 tabs 11/05/20 05/08/24 Unknown Rx glipizide 5 mg tablet 5 mg PO DAILY 12/12/20 05/08/24 Unknown History Allergies Allergy/AdvReac Type Severity Reaction Status Date / Time No Known Allergies Allergy Verified 01/27/21 08:31 PFSH Acute 2 PFSH: Medical History Clavicle fracture Anemia Cerebellar stroke Dyslipidemia HTN (hypertension) Surgical History H/O tooth extraction Family History Other Cancer Social History Smoking and tobacco/nicotine status: never used tobacco/nicotine Second hand smoke exposure: No Alcohol intake: never Substance/Drug Use: never Housing: House Vitals/I&O/Wt Last Vital Signs Temp 97.6 F 05/08/24 12:03 Pulse 45 L 05/08/24 14:32 Resp 27 H 05/08/24 13:11 BP 64/35 05/08/24 14:23 Pulse Ox 100 05/08/24 14:32 O2 Del Method Nasal Cannula 05/08/24 14:23 O2 Flow Rate 6 05/08/24 14:23 FiO2 50 05/08/24 14:32 05/08/24 05/08/24 05/08/24 06:59 14:59 22:59 Intake Total 55.038 / 55.038 Balance 55.038 / 55.038 Weight last 48 hrs Weight 65.317 kg Physical Exam 2 Const: COMMON NORMALS: no acute distress EXAM LIMITATIONS: altered mental status GENERAL APPEARANCE: in distress, lethargic, ill appearing and frail appearing NUTRITIONAL APPEARANCE: thin HENMT: COMMON NORMALS: normocephalic Eye: OTHER: pinpoint, non reactive to light Neck/C-Spine: COMMON NORMALS: no lymphadenopathy and no JVD Lymph: LYMPHATIC: no lymphadenopathy noted Chest: COMMONS NORMALS: normal inspection of the chest Resp: EFFORT & INSPECTION: Yes abnormal respiratory pattern, Yes tachypneic, Yes respiratory distress, Yes retractions and Yes uses accessory muscles A USCULTATION: wheezes and diminished lung sounds bilateral Cardio: COMMON NORMALS: no JVD, S1 normal heart sound present and S2 normal heart sound present RATE: bradycardic RHYTHM: regular rhythm HEART SOUNDS: S1 normal heart sound present and S2 normal heart sound present GI: COMMON NORMALS: Soft to palpation, non-tender, No hepatosplenomegaly present and no masses INSPECTION: Yes normal to inspection and Yes abdominal distension AUSCULTATION: Yes Hypoactive bowel sounds present : COMMON NORMALS: Yes no CVA tenderness Extremity: NARRATIVE EXTREMITY EXAM: no edema Neuro: DL COMA SCALE: document GCS findings Hiram coma scale eye opening: None Hiram coma scale verbal response: None Dl coma scale motor response: None Dl coma scale total score: 3 Sepsis: Is patient septic: Yes Focused sepsis exam performed: Yes Date exam was performed: 05/08/24 Time exam was performed: 15:00 Data 05/08/24 12:28 05/08/24 12:28 Micro: Microbiology 05/08/24 13:47 Blood Culture - Preliminary Blood SPECIMEN COLLECTED 05/08/24 12:28 Blood Culture - Preliminary Blood SPECIMEN COLLECTED A&P Assessment and plan (1) Septic shock: (2) DIC (disseminated intravascular coagulation): (3) Acute renal failure: (4) Unresponsiveness: (5) Acute encephalopathy: (6) Metabolic acidosis: (7) NSTEMI (non-ST elevated myocardial infarction): (8) Pneumonia: (9) Acute respiratory failure: (10) Acute respiratory distress: (11) Acalculous cholecystitis: (12) Lactic acidosis: (13) Bradycardia: (14) Need for comfort care: Plan comfort care Attestations 2 Medical Necessity Statement*: patient requires hospitalization for comfort care Coding Level of Care Code Critical Care >/= 30 minutes Critical care time (in minutes): 60 The high probability of a clinically significant, sudden or life threatening deterioration, as referenced in this documentation, required my full and direct attention, intervention and personal management. The critical care time shown is in addition to time spent performing any reported separately billable procedures and includes the following: [x] Data and vital sign review and interpretation [x ] Patient assessment, examination and intervention [x] Medication orders and management [x] Patient/Family updates as able [x] Care Coordination and Documentation. Diagnoses Septic shock A41.9; R65.21 DIC (disseminated intravascular coagulation) D65 Acute renal failure N17.9 Unresponsiveness R41.89 Acute encephalopathy G93.40 Metabolic acidosis E87.20 NSTEMI (non-ST elevated myocardial infarction) I21.4 Pneumonia J18.9 Acute respiratory failure J96.00 Acute respiratory distress R06.03 Acalculous cholecystitis K81.9 Lactic acidosis E87.20 Bradycardia R00.1 Need for comfort care
--- NOTE | 2024-05-08 15:36 | PC.NURSE ---
PER DR. BRAN TO MAX ALL PRESSORS TO HARD LIMITS. PT BLOOD PRESSURE NOT RESPONSIVE TO MEDICATIONS. PT HEART RATE BRADYCARDIC MAXED ON DOBUTAMINE.
[2024-05-08] MEDS: morphine 4 mg/mL SDV 1 mL IVP (15:40)
--- NOTE | 2024-05-08 16:50 | PC.NURSE ---
[employer] contacted on patient expiration. [facility] has been contacted and patient is not a candidate for [facility] or saving site and can be released to [facility] in [place] per family request.
--- NOTE | 2024-05-08 18:25 | PC.NURSE ---
PT TIME OF 5829
== END 2024-05-08 15:31 | disposition expired ==
LOC: ER 12:55 → ICU 15:20
PROVIDERS: Emergency Provider Emergency Medicine; PCP Registered Nurse
DX: A41.9 Sepsis, unspecified organism (principal); R65.21 Severe sepsis with septic shock; R41.82 Altered mental status, unspecified
CPT/HCPCS: 36415; 36556; 36600; 51702; 70450; 71045; 71275; 74177; 76705; 80051; 80053; 81001; 82330; 82805; 83605; 83735; 84484; 85025; 85610; 87040; 87086; 93005; 94660; 96365; 96375; 99152; 99291; 99292; J0171; J1250; J1720; J2270; J2543; J2598; J3370; J3490; J7030; J7050